=== PATIENT | male | born 2000 | race Caucasian/White ===

== ENCOUNTER 2023-11-25 12:18 | Outpatient (AMB) | payer OTHER, SELFPAY ==
--- NOTE | 2023-11-25 12:26 | A.OFFVIS_ITS ---
Vital Signs 11/25/23 12:33 Height 5 ft 11 in Weight 200 lb BMI 27.9 BP 112/62 Blood Pressure Location Lt brachial Position Sitting Pulse 61 Intake Visit Reasons: Irritable bowel syndrome Intake Note: Patient new consult for IBS. Patient cc: diarrhea and abdominal pain and crams. Manager Gift Required: No Accompanied by: Mother Allergies No Known Drug Allergies Allergy (Unknown, Verified 11/25/23 12:25) none HPI HPI Irritable bowel syndrome: Details: 23-year-old male here for initial evaluation of IBS. He is referred by [facility] Mayito Malik Obesity-BMI 31 IBS-D Attention deficit hyperactivity disorder Allergic rhinitis * SURGICAL HISTORY Ear surgery * ALLERGIES: NKDA * [facility] LABS: None our system TODAY'S VISIT Onset 7-8 years ago, but mom says at of digestive issues. 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 Has been on Tagamet at age 3. Mom does most of the talking. She thinks that his anxiety plays in to his sx. They have tried certain food eliminations w/o improvement. He was put on bentyl at age 16-18 but only using prn. They do not feel that it helped much. However, it will end the flairs sooner. He will have a feeling of bloating with lower abd pain. He will try to move his bowels to see if this helps. He has a lot of gas. It will take several hours to resolve. At times he will have explosive diarrhea, but he is not sure they are connected - he fells this may be lactose intolerance. No N/V except rarely. He has not had any success with gas x etc. The sx are worse with carbonated beverages. He does not have a consistent Bm in terms of timing. The stool is normal and formed mostly more than once a day. The bad attacks occur about 3 times a week. No real testing to date. There is a remote Celiac FHX and his mother had autoimmune arthritis he had a grandmother had similar sx but she was a self diagnoser and did nto have medical help. He will sometimes have blood in the stool he says I know I have hemorrhoids. He has a rash on his upper arms. It appears follicular at red but no exudate and it is not itchy or painful. He is on bentyl 20mg, I suggest he start taking 20mg qhs every night. I will be getting basic labs, US strong FHX of GB disease. RoV 4-6 weeks. PFSH Surgical History (Updated 11/25/23 @ 12:38 by Josy Oseguera) Hx of external ear surgery Family History (Updated 11/25/23 @ 12:43 by Josy Oseguera) Paternal Grandfather Heart disease Paternal Grandmother IBS (irritable bowel syndrome) Constipation Mother Rheumatoid arthritis Father Heart disease Social History (Updated 11/25/23 @ 12:35 by Josy Oseguera) Household Members: Family Alcohol intake: never Patient Tobacco Use Status: Never used Tobacco Review of Systems Const Denies fatigue, Denies fever(s), Denies night sweats, Denies poor appetite and Denies weight loss ENT Reports Normal hearing present, Denies dysphagia, Denies odynophagia, Denies throat swelling and Denies tongue swelling Card Reports no additional complaints Resp Reports no additional complaints GI Details: Reports abdominal pain, Denies melena, Reports bloating, Denies hematochezia, Denies constipation, Denies GI cramping, Denies dysphagia, Denies excessive flatus, Denies early satiety, Denies heartburn, Denies diarrhea, Reports loose stools, Denies nausea, Denies odynophagia, Denies vomiting and Denies hematemesis Skin/Breast Denies pruritus, Denies lesions, Denies rash and Denies jaundice Neuro Reports Normal hearing present and Denies Abnormal speech present Psych Reports anxiety Endo Denies fatigue Aller/Immun Denies throat swelling and Denies tongue swelling Physical Exam Vital Signs: Last Vital Signs Pulse 61 11/25/23 12:33 BP 112/62 11/25/23 12:33 BMI result Body Mass Index 27.9 Const General: cooperative, no acute distress, well developed and well groomed Nutritional Appearance: average body habitus and well nourished Orientation/consciousness: oriented to person, oriented to place and oriented to time Limitations: No language barrier HEENT Head: Yes normocephalic and Yes atraumatic Eyes General: appearance normal, both eyes and all related structures Pupils: Equal, round and reactive pupils present Neck Neck: Yes normal visual inspection and Yes no lymphadenopathy Thyroid: Thyroid normal Resp Effort & Inspection: normal respiratory effort and able to speak in complete sentences Auscultation: clear to auscultation bilaterally Cardio Rate: regular rate Rhythm: regular rhythm Heart sounds: Normal, physiologic split S2 sound present Peripheral pulses: radial pulses present and posterior tibial pulses present GI Inspection: No distended, No Abdominal panniculus present, Yes obesity and Yes striae Palpation (GI): Soft to palpation, nontender, no guarding, not rigid and No hepatosplenomegaly present Percussion: Yes normal to percussion Auscultation: normal bowel sounds Rectal Exam - Male: Yes deferred Skin General skin exam: no rashes or lesions noted, turgor normal, skin not dry, no jaundice, No spider nevi and no striae Rashes: no rashes Nails: normal Neuro General: oriented to person, oriented to place and oriented to time Cranial nerves: Yes Equal, round and reactive pupils present and Yes Normal hearing present Speech: No Abnormal speech present Extrem General: Yes normal to inspection, No clubbing, No cyanosis and No edema Psych Appearance: grossly normal and well kempt Mental Status: mental status grossly normal Speech and movement: Normal speech and movement present Affect: normal affect Attitude: cooperative Thought process: Normal thought process present and not confabulating Thought content: Normal thought content present Insight: Limited insight present (Psych) Judgement: Limited judgement present (Psych) Assessment & Plan Assessment & Plan (1) Abdominal pain: Code(s): R10.9 - Unspecified abdominal pain Category: Medical (2) Family history of gallbladder disease: Code(s): Z83.79 - Family history of other diseases of the digestive system Category: Medical (3) Diarrhea: Code(s): R19.7 - Diarrhea, unspecified Category: Medical (4) Abdominal bloating: Code(s): R14.0 - Abdominal distension (gaseous) Category: Medical (5) Irritable bowel syndrome with diarrhea: Code(s): K58.0 - Irritable bowel syndrome with diarrhea Category: Medical Plan Onset 7-8 years ago, but mom says at of digestive issues. 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 Has been on Tagamet at age 3. Mom does most of the talking. She thinks that his anxiety plays in to his sx. They have tried certain food eliminations w/o improvement. He was put on bentyl at age 16-18 but only using prn. They do not feel that it helped much. However, it will end the flairs sooner. He will have a feeling of bloating with lower abd pain. He will try to move his bowels to see if this helps. He has a lot of gas. It will take several hours to resolve. At times he will have explosive diarrhea, but he is not sure they are connected - he fells this may be lactose intolerance. No N/V except rarely. He has not had any success with gas x etc. The sx are worse with carbonated beverages. He does not have a consistent Bm in terms of timing. The stool is normal and formed mostly more than once a day. The bad attacks occur about 3 times a week. No real testing to date. There is a remote Celiac FHX and his mother had autoimmune arthritis he had a grandmother had similar sx but she was a self diagnoser and did nto have medical help. He will sometimes have blood in the stool he says I know I have hemorrhoids. He has a rash on his upper arms. It appears follicular at red but no exudate and it is not itchy or painful. He is on bentyl 20mg, I suggest he start taking 20mg qhs every night. I will be getting basic labs, US strong FHX of GB disease. RoV 4-6 weeks. Orders: Orders Complete Blood Count Auto Diff Today R10.9 - Unspecified abdominal pain, R14.0 - Abdominal distension (gaseous), R19.7 - Diarrhea, unspecified, Z83.79 - Family history of other diseases of the digestive system Transglutaminase IgA Today R10.9 - Unspecified abdominal pain, R14.0 - Abdominal distension (gaseous), R19.7 - Diarrhea, unspecified, Z83.79 - Family history of other diseases of the digestive system Transglutaminase Ab IgG Today R10.9 - Unspecified abdominal pain, R14.0 - Abdominal distension (gaseous), R19.7 - Diarrhea, unspecified, Z83.79 - Family history of other diseases of the digestive system Rast Allergen Today R10.9 - Unspecified abdominal pain, R14.0 - Abdominal distension (gaseous), R19.7 - Diarrhea, unspecified, Z83.79 - Family history of other diseases of the digestive system Comprehensive Met. Panel Today R10.9 - Unspecified abdominal pain, R14.0 - Abdominal distension (gaseous), R19.7 - Diarrhea, unspecified, Z83.79 - Family history of other diseases of the digestive system C Reactive Protein Today R10.9 - Unspecified abdominal pain, R14.0 - Abdominal distension (gaseous), R19.7 - Diarrhea, unspecified, Z83.79 - Family history of other diseases of the digestive system Gliadin Ab Panel Today R10.9 - Unspecified abdominal pain, R14.0 - Abdominal distension (gaseous), R19.7 - Diarrhea, unspecified, Z83.79 - Family history of other diseases of the digestive system Pancreatic Elastase-1 Today R10.9 - Unspecified abdominal pain, R14.0 - Abdominal distension (gaseous), R19.7 - Diarrhea, unspecified, Z83.79 - Family history of other diseases of the digestive system Calprotectin, Fecal Today R10.9 - Unspecified abdominal pain, R14.0 - Abdominal distension (gaseous), R19.7 - Diarrhea, unspecified, Z83.79 - Family history of other diseases of the digestive system US abdomen complete Today R10.9 - Unspecified abdominal pain, R14.0 - Abdominal distension (gaseous), R19.7 - Diarrhea, unspecified, Z83.79 - Family history of other diseases of the digestive system Medications: New dicyclomine 20 mg PO QID 120 tabs 2RF 30 days K58.0 - Irritable bowel syndrome with diarrhea Coding Level of Care Code New Pt Level 3 (22855) Diagnoses Abdominal pain R10.9 Family history of gallbladder disease Z83.79 Diarrhea R19.7 Abdominal bloating R14.0 Irritable bowel syndrome with diarrhea K58.0
[2023-11-25 12:33] VITALS: BP 112/62; PULSE 61; BMI 27.9
== END 2023-11-25 13:19 | disposition home or self-care (01) ==
PROVIDERS: PCP Pediatrics Adolescent Medicine; Visit Provider Nurse Practitioner
DX: R10.9 Unspecified abdominal pain (principal); Z83.79 Family history of other diseases of the digestive system; R19.7 Diarrhea, unspecified; R14.0 Abdominal distension (gaseous); K58.0 Irritable bowel syndrome with diarrhea
CPT/HCPCS: 99203

== ENCOUNTER 2023-11-25 12:18 | Outpatient (REF) | payer OTHER, SELFPAY ==
[2023-11-25 13:59] LABS: MANUAL DIFF FLAG NO
[2023-11-25 14:58] LABS: Basophils Absolute Auto 0.1 X10*3/uL (0.0-0.2); Basophils Percent Auto 0.9 % (0-2); Eosinophils Absolute Auto 0.2 X10*3/uL (0.0-0.4); Eosinophils Percent Auto 2.7 % (0-4); Hematocrit 46.4 % (42.0-52.0); Hemoglobin 15.8 g/dl (14.0-18.0); Imm Gran Abs Auto 0.01 X10*3/uL (0.00-0.03); Imm Gran Pct Auto 0.2 % (0.0-0.4); Lymphocytes Absolute Auto 1.9 X10*3/uL (1.2-4.9); Lymphocytes Percent Auto 34.5 % (20-40); Mean Corpuscular HGB Conc 34.1 g/dl (31.0-36.0); Mean Corpuscular Volume 85.1 fL (80.0-98.0); Mean Platelet Volume 10.5 fL (9.4-12.4); Monocytes Absolute Auto 0.5 X10*3/uL (0.1-1.2); Monocytes Percent Auto 8.9 % (2-11); Neutrophils Percent Auto 52.8 % (45-73); Platelet Count 287 X10*3/uL (160-400); Red Blood Count 5.45 X10*6/uL (4.60-5.80); Red Cell Distribution Width 11.8 % (11.0-16.0); White Blood Count 5.6 X10*3/uL (4.8-10.8)
[2023-11-25 15:33] LABS: Alanine Aminotransferase 34 U/L (0-40); Alkaline Phosphatase 69 U/L (39-117); Anion Gap 10 (12-20); Aspartate Amino Transferase 22 U/L (5-37); Bilirubin Total 0.9 mg/dL (0.0-1.0); Blood Urea Nitrogen 15 mg/dL (9-16); Calcium 10.3 mg/dL (8.4-10.2); Carbon Dioxide 31 mmol/L (22-29); Chloride 102 mmol/L (96-108); Estimated Glomerular Filt Rate > 60; Glucose Random 83 mg/dL (60-115); Sodium 139 mmol/L (135-145); Total Protein 8.3 g/dL (6.5-8.0)
[2023-11-29 22:09] LABS: Gliadin Deamidated IgA Ab <1.0 U/mL; Gliadin Deamidated IgG Ab <1.0 U/mL
[2023-11-30 20:24] LABS: Transglutaminase Ab IgG <1.0 U/mL; Transglutaminase IgA <1.0 U/mL
[2023-12-01 20:43] LABS: Calprotectin, Fecal 106 mcg/g
[2023-12-14 23:19] LABS: Pancreatic Elastase-1 >500 mcg/g
== END 2023-11-25 12:19 | disposition home or self-care (01) ==
LOC: HO.LAB 12:18
PROVIDERS: PCP Pediatrics Adolescent Medicine; Visit Provider Nurse Practitioner
DX: R10.9 Unspecified abdominal pain (principal); R19.7 Diarrhea, unspecified; R14.0 Abdominal distension (gaseous); Z83.79 Family history of other diseases of the digestive system
CPT/HCPCS: 36415; 80053; 82656; 83993; 85025; 86003; 86140; 86258; 86364

== ENCOUNTER 2023-12-01 08:55 | Outpatient (REF) | payer OTHER, SELFPAY ==
--- NOTE | ~2023-12-01 | US_ITS ---
EXAMINATION: US ABDOMEN COMPLETE CLINICAL INFORMATION: Unspecified abdominal pain. COMPARISON: None available. TECHNIQUE: Limited visualization due to bowel gas and body habitus. Real-time imaging of the abdominal viscera. FINDINGS: PANCREAS: Limited visualization of pancreatic tail and head. Imaged portion of pancreatic body is unremarkable. ABDOMINAL AORTA: Limited visualization. INFERIOR VENA CAVA: Visualized portions are normal. LIVER: Increased hepatic parenchymal heterogeneity and echogenicity could be associated with hepatocellular disease/hepatic steatosis and substantially limits visualization. Correlation with liver function tests and clinical exam recommended to determine further management. GALLBLADDER: No gallstones. No gallbladder wall thickening. COMMON BILE DUCT: Normal in caliber measuring 0.3 cm in diameter. RIGHT KIDNEY: No hydronephrosis. No renal calculi. Limited visualization. . The kidney measures 11.4 cm in maximum dimension. LEFT KIDNEY: No hydronephrosis. No renal calculi. Limited visualization. The kidney measures 10.2 cm in maximum dimension. SPLEEN: Normal. The spleen measures 11.8 cm in maximum dimension. FREE FLUID: None. US/US abdomen complete IMPRESSION: Increased hepatic parenchymal heterogeneity and echogenicity could be associated with hepatocellular disease/hepatic steatosis and substantially limits visualization. Correlation with liver function tests and clinical exam recommended to determine further management.
== END 2023-12-01 08:56 | disposition home or self-care (01) ==
LOC: HO.HMGCX 08:55
PROVIDERS: PCP Pediatrics Adolescent Medicine; Visit Provider Nurse Practitioner
DX: R10.9 Unspecified abdominal pain (principal); R19.7 Diarrhea, unspecified; R14.0 Abdominal distension (gaseous); Z83.79 Family history of other diseases of the digestive system
CPT/HCPCS: 76700

== ENCOUNTER 2023-12-21 08:28 | Outpatient (AMB) | payer BC, SELFPAY ==
[2023-12-21 08:38] VITALS: BP 110/68; PULSE 55; BMI 28.5
--- NOTE | 2023-12-21 08:38 | MHC.OFFVIS ---
Vital Signs 12/21/23 08:38 Height 5 ft 11 in Weight 204 lb 9.423 oz BMI 28.5 BP 110/68 Blood Pressure Location Lt brachial Position Sitting Pulse 55 Intake Visit Reasons: 4 week follow up Intake Note: Edgar returns to in office follow up of labs and US of the abdomen. CC: Patient reports he is doing about the same, he continues to have diarrhea and abdominal pain. He also reports a little bit of nausea and vomiting. 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 Accompanied by: Self / Same As Patient Allergies No Known Drug Allergies Allergy (Unknown, Verified 12/21/23 08:43) none HPI HPI 4 week follow up: Details: Assessment & Plan (1) Abdominal pain: Code(s): R10.9 - Unspecified abdominal pain Category: Medical (2) Family history of gallbladder disease: Code(s): Z83.79 - Family history of other diseases of the digestive system Category: Medical (3) Diarrhea: Code(s): R19.7 - Diarrhea, unspecified Category: Medical (4) Abdominal bloating: Code(s): R14.0 - Abdominal distension (gaseous) Category: Medical (5) Irritable bowel syndrome with diarrhea: Code(s): K58.0 - Irritable bowel syndrome with diarrhea Category: Medical Plan Onset 7-8 years ago, but mom says at of digestive issues. 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 Has been on Tagamet at age 3. Mom does most of the talking. She thinks that his anxiety plays in to his sx. They have tried certain food eliminations w/o improvement. He was put on bentyl at age 16-18 but only using prn. They do not feel that it helped much. However, it will end the flairs sooner. He will have a feeling of bloating with lower abd pain. He will try to move his bowels to see if this helps. He has a lot of gas. It will take several hours to resolve. At times he will have explosive diarrhea, but he is not sure they are connected - he fells this may be lactose intolerance. No N/V except rarely. He has not had any success with gas x etc. The sx are worse with carbonated beverages. He does not have a consistent Bm in terms of timing. The stool is normal and formed mostly more than once a day. The bad attacks occur about 3 times a week. No real testing to date. There is a remote Celiac FHX and his mother had autoimmune arthritis he had a grandmother had similar sx but she was a self diagnoser and did nto have medical help. He will sometimes have blood in the stool he says I know I have hemorrhoids. He has a rash on his upper arms. It appears follicular at red but no exudate and it is not itchy or painful. He is on bentyl 20mg, I suggest he start taking 20mg qhs every night. I will be getting basic labs, US strong FHX of GB disease. RoV 4-6 weeks. Orders: Orders Complete Blood Count Auto Diff Today R10.9 - Unspecified abdominal pain, R14.0 - Abdominal distension (gaseous), R19.7 - Diarrhea, unspecified, Z83.79 - Family history of other diseases of the digestive system Transglutaminase IgA Today R10.9 - Unspecified abdominal pain, R14.0 - Abdominal distension (gaseous), R19.7 - Diarrhea, unspecified, Z83.79 - Family history of other diseases of the digestive system Transglutaminase Ab IgG Today R10.9 - Unspecified abdominal pain, R14.0 - Abdominal distension (gaseous), R19.7 - Diarrhea, unspecified, Z83.79 - Family history of other diseases of the digestive system Rast Allergen Today R10.9 - Unspecified abdominal pain, R14.0 - Abdominal distension (gaseous), R19.7 - Diarrhea, unspecified, Z83.79 - Family history of other diseases of the digestive system Comprehensive Met. Panel Today R10.9 - Unspecified abdominal pain, R14.0 - Abdominal distension (gaseous), R19.7 - Diarrhea, unspecified, Z83.79 - Family history of other diseases of the digestive system C Reactive Protein Today R10.9 - Unspecified abdominal pain, R14.0 - Abdominal distension (gaseous), R19.7 - Diarrhea, unspecified, Z83.79 - Family history of other diseases of the digestive system Gliadin Ab Panel Today R10.9 - Unspecified abdominal pain, R14.0 - Abdominal distension (gaseous), R19.7 - Diarrhea, unspecified, Z83.79 - Family history of other diseases of the digestive system Pancreatic Elastase-1 Today R10.9 - Unspecified abdominal pain, R14.0 - Abdominal distension (gaseous), R19.7 - Diarrhea, unspecified, Z83.79 - Family history of other diseases of the digestive system Calprotectin, Fecal Today R10.9 - Unspecified abdominal pain, R14.0 - Abdominal distension (gaseous), R19.7 - Diarrhea, unspecified, Z83.79 - Family history of other diseases of the digestive system US abdomen complete Today R10.9 - Unspecified abdominal pain, R14.0 - Abdominal distension (gaseous), R19.7 - Diarrhea, unspecified, Z83.79 - Family history of other diseases of the digestive system Medications: New dicyclomine 20 mg PO QID 120 tabs 2RF 30 days K58.0 - Irritable bowel syndrome with diarrhea LABS: Laboratory Tests 11/25/23 11/25/23 13:57 14:30 WBC 5.6 Hgb 15.8 Hct 46.4 Plt Count 287 Estimated GFR > 60 Total Bilirubin 0.9 AST 22 ALT 34 Alkaline Phosphatase 69 C-Reactive Protein 0.10 Stool Calprotectin 106 Stool Pancreat Elastase >500 Tiss Transglutamin IgG <1.0 Tiss Transglutamin IgA <1.0 Anti-Gliadin IgG Ab <1.0 Gliadin (Deamidat) IgA <1.0 ULTRASOUND OF THE ABDOMEN 12/13/23 FINDINGS: PANCREAS: Limited visualization of pancreatic tail and head. Imaged portion of pancreatic body is unremarkable. ABDOMINAL AORTA: Limited visualization. INFERIOR VENA CAVA: Visualized portions are normal. LIVER: Increased hepatic parenchymal heterogeneity and echogenicity could be associated with hepatocellular disease/hepatic steatosis and substantially limits visualization. Correlation with liver function tests and clinical exam recommended to determine further management. GALLBLADDER: No gallstones. No gallbladder wall thickening. COMMON BILE DUCT: Normal in caliber measuring 0.3 cm in diameter. RIGHT KIDNEY: No hydronephrosis. No renal calculi. Limited visualization. . The kidney measures 11.4 cm in maximum dimension. LEFT KIDNEY: No hydronephrosis. No renal calculi. Limited visualization. The kidney measures 10.2 cm in maximum dimension. SPLEEN: Normal. The spleen measures 11.8 cm in maximum dimension. FREE FLUID: None. US/US abdomen complete IMPRESSION: Increased hepatic parenchymal heterogeneity and echogenicity could be associated with hepatocellular disease/hepatic steatosis and substantially limits visualization. Correlation with liver function tests and clinical exam recommended to determine further management. TODAY'S VISIT He has multiple food allergies, I print his a list. This explains the elevated fecal alex. He says Oh, this is mostly my diet. He has allergies to egg whites, peanuts, wheat, walnuts, cow's milk, shrimp, scallops, sesame seeds, Haylee nuts, almond. This leads seen a wonder if the rash in his arms is not a result of his multiple food allergies. He has a mildly elevated fecal calprotectin but I think this is probably from the irritation of the allergies and not a process indicating inflammatory bowel disease. We will give him 8 week to try elimination diet. He is on bentyl which is somewhat helpful, but he notes if he forgets to take it one day he will have diarrhea the next. ROV 8 weeks. [facility] Surgical History Hx of external ear surgery Family History Paternal Grandfather Heart disease Paternal Grandmother IBS (irritable bowel syndrome) Constipation Mother Rheumatoid arthritis Father Heart disease Social History Household Members: Family Alcohol intake: never Patient Tobacco Use Status: Never used Tobacco Review of Systems Const Denies fatigue, Denies fever(s), Denies night sweats, Denies poor appetite and Denies weight loss ENT Reports Normal hearing present, Denies dental pain, Denies dysphagia, Denies hearing loss, Denies mouth pain, Denies odynophagia, Denies throat swelling, Denies tongue swelling and Reports other (Dentition adequate) Card Reports no additional complaints Resp Reports no additional complaints GI Details: Denies abdominal pain, Denies melena, Reports bloating, Denies hematochezia, Denies constipation, Denies GI cramping, Denies dysphagia, Denies excessive flatus, Denies early satiety, Denies heartburn, Reports diarrhea, Denies nausea, Denies odynophagia, Denies vomiting and Denies hematemesis Skin/Breast Denies pruritus, Denies lesions, Reports rash and Denies jaundice Neuro Reports Normal hearing present and Denies Abnormal speech present Endo Denies fatigue Aller/Immun Denies throat swelling and Denies tongue swelling Physical Exam Vital Signs: Last Vital Signs Pulse 55 12/21/23 08:38 BP 110/68 12/21/23 08:38 BMI result Body Mass Index 28.5 Const General: cooperative, no acute distress, well developed and well groomed Nutritional Appearance: average body habitus and well nourished Orientation/consciousness: oriented to person, oriented to place and oriented to time Limitations: No language barrier HEENT Head: Yes normocephalic and Yes atraumatic Eyes General: appearance normal, both eyes and all related structures Pupils: Equal, round and reactive pupils present Neck Neck: Yes normal visual inspection and Yes no lymphadenopathy Thyroid: Thyroid normal Resp Effort & Inspection: normal respiratory effort and able to speak in complete sentences Auscultation: clear to auscultation bilaterally Cardio Rate: regular rate Rhythm: regular rhythm Heart sounds: Normal, physiologic split S2 sound present Peripheral pulses: radial pulses present and posterior tibial pulses present GI Inspection: No distended and No Abdominal panniculus present Palpation (GI): Soft to palpation, nontender, no guarding, not rigid and No hepatosplenomegaly present Percussion: Yes normal to percussion Auscultation: normal bowel sounds Rectal Exam - Male: Yes deferred Skin General skin exam: no rashes or lesions noted, turgor normal, skin not dry, no jaundice, No spider nevi and no striae Rashes: rashes noted (On upper arms flat, discrete pin dot) Nails: normal Neuro General: oriented to person, oriented to place and oriented to time Cranial nerves: Yes Equal, round and reactive pupils present and Yes Normal hearing present Speech: No Abnormal speech present Extrem General: Yes normal to inspection, No clubbing, No cyanosis and No edema Psych Appearance: grossly normal and well kempt Mental Status: mental status grossly normal Speech and movement: Normal speech and movement present Affect: normal affect Attitude: cooperative Thought process: Normal thought process present and not confabulating Thought content: Normal thought content present Insight: Limited insight present (Psych) Judgement: Limited judgement present (Psych) Results Reviewed Results Reviewed: Laboratory Tests 11/25/23 11/25/23 13:57 14:30 WBC 5.6 Hgb 15.8 Hct 46.4 Plt Count 287 Estimated GFR > 60 Total Bilirubin 0.9 AST 22 ALT 34 Alkaline Phosphatase 69 C-Reactive Protein 0.10 Stool Calprotectin 106 Stool Pancreat Elastase >500 Tiss Transglutamin IgG <1.0 Tiss Transglutamin IgA <1.0 Anti-Gliadin IgG Ab <1.0 Gliadin (Deamidat) IgA <1.0 ULTRASOUND OF THE ABDOMEN 12/13/23 FINDINGS: PANCREAS: Limited visualization of pancreatic tail and head. Imaged portion of pancreatic body is unremarkable. ABDOMINAL AORTA: Limited visualization. INFERIOR VENA CAVA: Visualized portions are normal. LIVER: Increased hepatic parenchymal heterogeneity and echogenicity could be associated with hepatocellular disease/hepatic steatosis and substantially limits visualization. Correlation with liver function tests and clinical exam recommended to determine further management. GALLBLADDER: No gallstones. No gallbladder wall thickening. COMMON BILE DUCT: Normal in caliber measuring 0.3 cm in diameter. RIGHT KIDNEY: No hydronephrosis. No renal calculi. Limited visualization. . The kidney measures 11.4 cm in maximum dimension. LEFT KIDNEY: No hydronephrosis. No renal calculi. Limited visualization. The kidney measures 10.2 cm in maximum dimension. SPLEEN: Normal. The spleen measures 11.8 cm in maximum dimension. FREE FLUID: None. US/US abdomen complete IMPRESSION: Increased hepatic parenchymal heterogeneity and echogenicity could be associated with hepatocellular disease/hepatic steatosis and substantially limits visualization. Correlation with liver function tests and clinical exam recommended to determine further management Assessment & Plan Assessment & Plan (1) Multiple food allergies: Comment: egg whites, peanuts, wheat, walnuts, cow's milk, shrimp, scallops, sesame seeds, Haylee nuts, almond. Code(s): Z91.018 - Allergy to other foods Category: Medical (2) Abdominal bloating: Code(s): R14.0 - Abdominal distension (gaseous) Category: Medical (3) Irritable bowel syndrome with diarrhea: Code(s): K58.0 - Irritable bowel syndrome with diarrhea Category: Medical Plan He has multiple food allergies, I print his a list. This explains the elevated fecal alex. He says Oh, this is mostly my diet. He has allergies to egg whites, peanuts, wheat, walnuts, cow's milk, shrimp, scallops, sesame seeds, Haylee nuts, almond. This leads seen a wonder if the rash in his arms is not a result of his multiple food allergies. He has a mildly elevated fecal calprotectin but I think this is probably from the irritation of the allergies and not a process indicating inflammatory bowel disease. We will give him 8 week to try elimination diet. He is on bentyl which is somewhat helpful, but he notes if he forgets to take it one day he will have diarrhea the next. ROV 8 weeks. Coding Level of Care Code Est Pt Level 3 (53336) Diagnoses Multiple food allergies Z91.018 Abdominal bloating R14.0 Irritable bowel syndrome with diarrhea K58.0
== END 2023-12-21 09:08 | disposition home or self-care (01) ==
PROVIDERS: PCP Pediatrics Adolescent Medicine; Referring Provider Pediatrics Adolescent Medicine; Visit Provider Nurse Practitioner
DX: Z91.018 Allergy to other foods (principal); R14.0 Abdominal distension (gaseous); K58.0 Irritable bowel syndrome with diarrhea
CPT/HCPCS: 99213

== ENCOUNTER → 2023-12-21 08:28 | Outpatient (BNVA) | payer OTHER, SELFPAY | PROVIDERS: PCP Pediatrics Adolescent Medicine; Visit Provider Nurse Practitioner ==

== ENCOUNTER 2024-02-15 12:35 | Outpatient (AMB) | payer BC, SELFPAY ==
--- NOTE | 2024-02-15 12:46 | MHC.OFFVIS ---
Vital Signs 02/15/24 12:48 Height 5 ft 11 in Weight 194 lb BMI 27.1 BP 106/57 L Blood Pressure Location Lt brachial Position Sitting Pulse 68 Intake Visit Reasons: 8 week follow up Intake Note: Patient follow up for abdominal pain Patient cc: abdominal pain/bloating, between diarrhea and constipation, gassy and denies any other GI issues. 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 Code(s): Z91.018 - Allergy to other foods Category: Medical (2) Abdominal bloating: Code(s): R14.0 - Abdominal distension (gaseous) Category: Medical (3) Irritable bowel syndrome with diarrhea: Code(s): K58.0 - Irritable bowel syndrome with diarrhea Category: Medical Plan He has multiple food allergies, I print his a list. This explains the elevated fecal alex. He says Oh, this is mostly my diet. He has allergies to egg whites, peanuts, wheat, walnuts, cow's milk, shrimp, scallops, sesame seeds, Haylee nuts, almond. This leads seen a wonder if the rash in his arms is not a result of his multiple food allergies. He has a mildly elevated fecal calprotectin but I think this is probably from the irritation of the allergies and not a process indicating inflammatory bowel disease. We will give him 8 week to try elimination diet. He is on bentyl which is somewhat helpful, but he notes if he forgets to take it one day he will have diarrhea the next. ROV 8 weeks. . TODAY'S VISIT He is here today with his mother who is supportive He has successfully eliminated all the foods he is allergic to and he noticed an improvement however the symptoms have not resolved. He thinks that the bloating is improved along with the intensity and maybe the frequency of the cramping and softer stools but it still enough that it interferes with his work in his life. He tends to take the dicyclomine only on an as-needed basis and mostly during the week to try to get to work and then stops on the weekends. Nevertheless, he does not find it to be that terribly effective in keeping the symptoms at [place]. Mostly his stools are multiple times a day and soft but when he has severe cramping is when he has looser stools. With this, I think we need to progress to a different treatment than dicyclomine but I think that some of the IBS/D medications for severe cases may be too strong and cause him constipation. With this in mind I think were going to give him a trial of TCA specifically imipramine and titrate this to affect her side effect to give him better control. I explained the potential side effects and the treatment plan and he is agreeable to it Return office visit in 2 weeks to evaluate his response [facility] Medical History Family history of gallbladder disease Abdominal pain Irritable bowel syndrome with diarrhea Surgical History Hx of external ear surgery Family History Paternal Grandfather Heart disease Paternal Grandmother IBS (irritable bowel syndrome) Constipation Mother Rheumatoid arthritis Father Heart disease Social History Household Members: Family Alcohol intake: never Patient Tobacco Use Status: Never used Tobacco Review of Systems Const Denies fatigue, Denies fever(s), Denies night sweats, Denies poor appetite and Denies weight loss ENT Reports Normal hearing present, Denies dental pain, Denies dysphagia, Denies hearing loss, Denies mouth pain, Denies odynophagia, Denies throat swelling, Denies tongue swelling and Reports other (Dentition adequate) Card Reports no additional complaints Resp Reports no additional complaints GI Details: Denies abdominal pain, Denies melena, Reports bloating, Denies hematochezia, Denies constipation, Denies GI cramping, Denies dysphagia, Denies excessive flatus, Denies early satiety, Denies heartburn, Reports diarrhea, Denies nausea, Denies odynophagia, Denies vomiting and Denies hematemesis Skin/Breast Denies pruritus, Denies lesions, Denies rash and Denies jaundice Neuro Reports Normal hearing present and Denies Abnormal speech present Endo Denies fatigue Aller/Immun Denies throat swelling and Denies tongue swelling Physical Exam Vital Signs: Last Vital Signs Pulse 68 02/15/24 12:48 BP 106/57 L 02/15/24 12:48 BMI result Body Mass Index 27.1 Const General: cooperative, no acute distress, well developed and well groomed Nutritional Appearance: average body habitus and well nourished Orientation/consciousness: oriented to person, oriented to place and oriented to time Limitations: No language barrier HEENT Head: Yes normocephalic and Yes atraumatic Eyes General: appearance normal, both eyes and all related structures Pupils: Equal, round and reactive pupils present Neck Neck: Yes normal visual inspection and Yes no lymphadenopathy Thyroid: Thyroid normal Resp Effort & Inspection: normal respiratory effort and able to speak in complete sentences Auscultation: clear to auscultation bilaterally Cardio Rate: regular rate Rhythm: regular rhythm Heart sounds: Normal, physiologic split S2 sound present Peripheral pulses: radial pulses present and posterior tibial pulses present GI Inspection: No distended and No Abdominal panniculus present Palpation (GI): Soft to palpation, nontender, no guarding, not rigid and No hepatosplenomegaly present Percussion: Yes normal to percussion Auscultation: normal bowel sounds Rectal Exam - Male: Yes deferred Skin General skin exam: no rashes or lesions noted, turgor normal, skin not dry, no jaundice, No spider nevi and no striae Rashes: no rashes Nails: normal Neuro General: oriented to person, oriented to place and oriented to time Cranial nerves: Yes Equal, round and reactive pupils present and Yes Normal hearing present Speech: No Abnormal speech present Extrem General: Yes normal to inspection, No clubbing, No cyanosis and No edema Psych Appearance: grossly normal and well kempt Mental Status: mental status grossly normal Speech and movement: Normal speech and movement present Affect: normal affect Attitude: cooperative Thought process: Normal thought process present and not confabulating Thought content: Normal thought content present Insight: Limited insight present (Psych) Judgement: Limited judgement present (Psych) Assessment & Plan Assessment & Plan (1) Multiple food allergies: Comment: egg whites, peanuts, wheat, walnuts, cow's milk, shrimp, scallops, sesame seeds, Haylee nuts, almond. Code(s): Z91.018 - Allergy to other foods Category: Medical (2) Abdominal bloating: Code(s): R14.0 - Abdominal distension (gaseous) Category: Medical (3) Diarrhea: Code(s): R19.7 - Diarrhea, unspecified Category: Medical (4) Irritable bowel syndrome with diarrhea: Code(s): K58.0 - Irritable bowel syndrome with diarrhea Category: Medical Plan He is here today with his mother who is supportive He has successfully eliminated all the foods he is allergic to and he noticed an improvement however the symptoms have not resolved. He thinks that the bloating is improved along with the intensity and maybe the frequency of the cramping and softer stools but it still enough that it interferes with his work in his life. He tends to take the dicyclomine only on an as-needed basis and mostly during the week to try to get to work and then stops on the weekends. Nevertheless, he does not find it to be that terribly effective in keeping the symptoms at [place]. Mostly his stools are multiple times a day and soft but when he has severe cramping is when he has looser stools. With this, I think we need to progress to a different treatment than dicyclomine but I think that some of the IBS/D medications for severe cases may be too strong and cause him constipation. With this in mind I think were going to give him a trial of TCA specifically imipramine and titrate this to affect her side effect to give him better control. I explained the potential side effects and the treatment plan and he is agreeable to it Return office visit in 2 weeks to evaluate his response Medications: New imipramine HCl 10 mg PO BEDTIME 30 tabs 6RF 30 days K58.0 - Irritable bowel syndrome with diarrhea On Hold dicyclomine Hold Comment: Doctor's Order 20 mg PO QID 30 days 120 tabs 2RF K58.0 - Irritable bowel syndrome with diarrhea Coding Level of Care Code Est Pt Level 3 (98835) Diagnoses Multiple food allergies Z91.018 Abdominal bloating R14.0 Diarrhea R19.7 Irritable bowel syndrome with diarrhea K58.0
[2024-02-15 12:48] VITALS: BP 106/57; PULSE 68; BMI 27.1
== END 2024-02-15 13:20 | disposition home or self-care (01) ==
PROVIDERS: PCP Pediatrics Adolescent Medicine; Visit Provider Nurse Practitioner
DX: Z91.018 Allergy to other foods (principal); R14.0 Abdominal distension (gaseous); R19.7 Diarrhea, unspecified; K58.0 Irritable bowel syndrome with diarrhea
CPT/HCPCS: 99213

== ENCOUNTER → 2024-02-15 12:35 | Outpatient (BNVA) | payer OTHER, SELFPAY | PROVIDERS: PCP Pediatrics Adolescent Medicine; Visit Provider Nurse Practitioner ==

== ENCOUNTER 2024-02-29 12:39 | Outpatient (AMB) | payer BC, SELFPAY ==
--- NOTE | 2024-02-29 12:47 | A.OFFVIS_ITS ---
Vital Signs 02/29/24 12:53 Height 5 ft 11 in Weight 194 lb 14.218 oz BMI 27.2 BP 114/72 Blood Pressure Location Lt brachial Position Sitting Pulse 76 Pulse Source Pulse Oximeter Pulse Oximetry (%) 98 Oxygen Delivery Method Room Air Intake Visit Reasons: 2 week follow up Intake Note: Buck presents in office today for a scheduled 2 week FUV. CC: Pt reports that they have remained stable since their last visit, but have not seen any improvements over the course of the recent weeks. Pt denies any new concerns at this time and reports that their concerns are pertaining to their chronic sx. 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 He thinks that the bloating is improved along with the intensity and maybe the frequency of the cramping and softer stools but it still enough that it interferes with his work in his life. He tends to take the dicyclomine only on an as-needed basis and mostly during the week to try to get to work and then stops on the weekends. Nevertheless, he does not find it to be that terribly effective in keeping the symptoms at [place]. Mostly his stools are multiple times a day and soft but when he has severe cramping is when he has looser stools. With this, I think we need to progress to a different treatment been dicyclomine but I think that some of the IBS/D medications for severe cases may be too strong and cause him constipation. With this in mind I think were going to give him a trial of TCA specifically imipramine and titrate this to affect her side effect to give him better control. I explained the potential side effects and the treatment plan and he is agreeable to it Return office visit in 2 weeks to evaluate his response TODAYS VISIT Sx same with multiple soft stools and cramping, he is generally avoiding all the food is allergic to except on labor day weekend when he cheated a bit. Otherwise he has been doing well with that. He has had absolutely no side effects from the imipramine. At this point we will slowly increase the medication until we reach therapeutic affect or problems with side effects and go from there. Return office visit in 3 weeks [facility] Medical History Family history of gallbladder disease Abdominal pain Irritable bowel syndrome with diarrhea Surgical History Hx of external ear surgery Family History Paternal Grandfather Heart disease Paternal Grandmother IBS (irritable bowel syndrome) Constipation Mother Rheumatoid arthritis Father Heart disease Social History Household Members: Family Alcohol intake: never Patient Tobacco Use Status: Never used Tobacco Review of Systems Const Denies fatigue, Denies fever(s), Denies night sweats, Denies poor appetite and Denies weight loss ENT Reports Normal hearing present, Denies dental pain, Denies dysphagia, Denies hearing loss, Denies mouth pain, Denies odynophagia, Denies throat swelling, Denies tongue swelling and Reports other (Dentition adequate) Card Reports no additional complaints Resp Reports no additional complaints GI Details: Denies abdominal pain, Denies melena, Reports bloating, Denies hematochezia, Denies constipation, Reports GI cramping, Denies dysphagia, Denies excessive flatus, Denies early satiety, Denies heartburn, Reports diarrhea, Denies nausea, Denies odynophagia, Denies vomiting and Denies hematemesis Skin/Breast Denies pruritus, Denies lesions, Denies rash and Denies jaundice Neuro Reports Normal hearing present and Denies Abnormal speech present Endo Denies fatigue Aller/Immun Denies throat swelling and Denies tongue swelling Physical Exam Vital Signs: Last Vital Signs Pulse 76 02/29/24 12:53 BP 114/72 02/29/24 12:53 Pulse Ox 98 02/29/24 12:53 Oxygen Delivery Method Room Air 02/29/24 12:53 BMI result Body Mass Index 27.2 Const General: cooperative, no acute distress, well developed and well groomed Nutritional Appearance: average body habitus and well nourished Orientation/consciousness: oriented to person, oriented to place and oriented to time Limitations: No language barrier HEENT Head: Yes normocephalic and Yes atraumatic Eyes General: appearance normal, both eyes and all related structures Pupils: Equal, round and reactive pupils present Neck Neck: Yes normal visual inspection and Yes no lymphadenopathy Thyroid: Thyroid normal Resp Effort & Inspection: normal respiratory effort and able to speak in complete sentences Auscultation: clear to auscultation bilaterally Cardio Rate: regular rate Rhythm: regular rhythm Heart sounds: Normal, physiologic split S2 sound present Peripheral pulses: radial pulses present and posterior tibial pulses present GI Inspection: No distended and No Abdominal panniculus present Palpation (GI): Soft to palpation, nontender, no guarding, not rigid and No hepatosplenomegaly present Percussion: Yes normal to percussion Auscultation: normal bowel sounds Rectal Exam - Male: Yes deferred Skin General skin exam: no rashes or lesions noted, turgor normal, skin not dry, no jaundice, No spider nevi and no striae Rashes: no rashes Nails: normal Neuro General: oriented to person, oriented to place and oriented to time Cranial nerves: Yes Equal, round and reactive pupils present and Yes Normal hearing present Speech: No Abnormal speech present Extrem General: Yes normal to inspection, No clubbing, No cyanosis and No edema Psych Appearance: grossly normal and well kempt Mental Status: mental status grossly normal Speech and movement: Normal speech and movement present Affect: normal affect Attitude: cooperative Thought process: Normal thought process present and not confabulating Thought content: Normal thought content present Insight: Fair insight present (Psych) and Limited insight present (Psych) Judgement: Fair judgement present (Psych) and Limited judgement present (Psych) Assessment & Plan Assessment & Plan (1) Multiple food allergies: Comment: egg whites, peanuts, wheat, walnuts, cow's milk, shrimp, scallops, sesame seeds, Haylee nuts, almond. Code(s): Z91.018 - Allergy to other foods Category: Medical (2) Abdominal bloating: Code(s): R14.0 - Abdominal distension (gaseous) Category: Medical (3) Diarrhea: Code(s): R19.7 - Diarrhea, unspecified Category: Medical Plan Sx same with multiple soft stools and cramping, he is generally avoiding all the food is allergic to except on day weekend when he cheated a bit. Otherwise he has been doing well with that. He has had absolutely no side effects from the imipramine. At this point we will slowly increase the medication until we reach therapeutic affect or problems with side effects and go from there. Return office visit in 3 weeks Medications: Changed From imipramine HCl 10 mg PO BEDTIME 30 days 30 tabs 6RF K58.0 - Irritable bowel syndrome with diarrhea To imipramine HCl 20 mg (2 x 10 mg) PO BEDTIME 60 tabs 6RF 30 days K58.0 - Irritable bowel syndrome with diarrhea Coding Level of Care Code Est Pt Level 3 (91664) Diagnoses Multiple food allergies Z91.018 Abdominal bloating R14.0 Diarrhea R19.7
[2024-02-29 12:53] VITALS: BP 114/72; PULSE 76; O2SAT 98; BMI 27.2
== END 2024-02-29 13:12 | disposition home or self-care (01) ==
PROVIDERS: PCP Internal Medicine; Visit Provider Nurse Practitioner
DX: Z91.018 Allergy to other foods (principal); R14.0 Abdominal distension (gaseous); R19.7 Diarrhea, unspecified
CPT/HCPCS: 99213

== ENCOUNTER → 2024-02-29 12:39 | Outpatient (BNVA) | payer BC, SELFPAY | PROVIDERS: PCP Internal Medicine; Visit Provider Nurse Practitioner ==

== ENCOUNTER 2024-03-21 12:32 | Outpatient (AMB) | payer BC, SELFPAY ==
--- NOTE | 2024-03-21 12:45 | A.OFFVIS_ITS ---
Vital Signs 03/21/24 12:48 Height 5 ft 11 in Weight 196 lb 3.382 oz BMI 27.4 BP 113/73 Blood Pressure Location Lt brachial Position Sitting Pulse 75 Intake Visit Reasons: 3 week follow up Allergies No Known Drug Allergies Allergy (Unknown, Verified 03/21/24 12:53) none HPI HPI 3 week follow up : Details: Assessment & Plan (1) Multiple food allergies: Comment: egg whites, peanuts, wheat, walnuts, cow's milk, shrimp, scallops, sesame seeds, Haylee nuts, almond. Code(s): Z91.018 - Allergy to other foods Category: Medical (2) Abdominal bloating: Code(s): R14.0 - Abdominal distension (gaseous) Category: Medical (3) Diarrhea: Code(s): R19.7 - Diarrhea, unspecified Category: Medical Plan Sx same with multiple soft stools and cramping, he is generally avoiding all the food is allergic to except on labor day weekend when he cheated a bit. Otherwise he has been doing well with that. He has had absolutely no side effects from the imipramine. At this point we will slowly increase the medication until we reach therapeutic affect or problems with side effects and go from there. Return office visit in 3 weeks Medications: Changed From imipramine HCl 10 mg PO BEDTIME 30 days 30 tabs 6RF K58.0 - Irritable bowel syndrome with diarrhea To imipramine HCl 20 mg (2 x 10 mg) PO BEDTIME 60 tabs 6RF 30 days K58.0 - Irritable bowel syndrome with diarrhea TODAY'S VISIT With the increase of his imipramine to 20 mg at night he is now symptom-free and is very happy with this regimen. He is having no side effects and no troubles with constipation. Return office visit in 6 months [facility] Medical History Family history of gallbladder disease Abdominal pain Irritable bowel syndrome with diarrhea Surgical History Hx of external ear surgery Family History Paternal Grandfather Heart disease Paternal Grandmother IBS (irritable bowel syndrome) Constipation Mother Rheumatoid arthritis Father Heart disease Social History Household Members: Family Alcohol intake: never Patient Tobacco Use Status: Never used Tobacco Review of Systems Const Denies fatigue, Denies fever(s), Denies night sweats, Denies poor appetite and Denies weight loss ENT Reports Normal hearing present, Denies dental pain, Denies dysphagia, Denies hearing loss, Denies mouth pain, Denies odynophagia, Denies throat swelling, Denies tongue swelling and Reports other (Dentition adequate) Card Reports no additional complaints Resp Reports no additional complaints GI Details: Reports abdominal pain, Denies melena, Denies bloating, Denies hematochezia, Denies constipation, Denies GI cramping, Denies dysphagia, Denies excessive flatus, Denies early satiety, Denies heartburn, Reports diarrhea, Denies nausea, Denies odynophagia, Denies vomiting and Denies hematemesis Skin/Breast Denies pruritus, Denies lesions, Denies rash and Denies jaundice Neuro Reports Normal hearing present and Denies Abnormal speech present Endo Denies fatigue Aller/Immun Denies throat swelling and Denies tongue swelling Physical Exam Vital Signs: Last Vital Signs Pulse 75 03/21/24 12:48 BP 113/73 03/21/24 12:48 BMI result Body Mass Index 27.4 Const General: cooperative, no acute distress, well developed and well groomed Nutritional Appearance: average body habitus and well nourished Orientation/consciousness: oriented to person, oriented to place and oriented to time Limitations: No language barrier HEENT Head: Yes normocephalic and Yes atraumatic Eyes General: appearance normal, both eyes and all related structures Pupils: Equal, round and reactive pupils present Neck Neck: Yes normal visual inspection and Yes no lymphadenopathy Thyroid: Thyroid normal Resp Effort & Inspection: normal respiratory effort and able to speak in complete sentences Auscultation: clear to auscultation bilaterally Cardio Rate: regular rate Rhythm: regular rhythm Heart sounds: Normal, physiologic split S2 sound present Peripheral pulses: radial pulses present and posterior tibial pulses present GI Inspection: No distended and No Abdominal panniculus present Palpation (GI): Soft to palpation, nontender, no guarding, not rigid and No hepatosplenomegaly present Percussion: Yes normal to percussion Auscultation: normal bowel sounds Rectal Exam - Male: Yes deferred Skin General skin exam: no rashes or lesions noted, turgor normal, skin not dry, no jaundice, No spider nevi and no striae Rashes: no rashes Nails: normal Neuro General: oriented to person, oriented to place and oriented to time Cranial nerves: Yes Equal, round and reactive pupils present and Yes Normal hearing present Speech: No Abnormal speech present Extrem General: Yes normal to inspection, No clubbing, No cyanosis and No edema Psych Appearance: grossly normal and well kempt Mental Status: mental status grossly normal Speech and movement: Normal speech and movement present Affect: normal affect Attitude: cooperative Thought process: Normal thought process present and not confabulating Thought content: Normal thought content present Insight: Limited insight present (Psych) Judgement: Limited judgement present (Psych) Assessment & Plan Assessment & Plan (1) Multiple food allergies: Comment: egg whites, peanuts, wheat, walnuts, cow's milk, shrimp, scallops, sesame seeds, Haylee nuts, almond. Code(s): Z91.018 - Allergy to other foods Category: Medical (2) Abdominal bloating: Code(s): R14.0 - Abdominal distension (gaseous) Category: Medical (3) Diarrhea: Code(s): R19.7 - Diarrhea, unspecified Category: Medical Plan With the increase of his imipramine to 20 mg at night he is now symptom-free and is very happy with this regimen. He is having no side effects and no troubles with constipation. Return office visit in 6 months Medications: Refilled imipramine HCl 20 mg (2 x 10 mg) PO BEDTIME 60 tabs 6RF 30 days K58.0 - Irritable bowel syndrome with diarrhea Discontinued dicyclomine Discontinued Reason: Doctor's Order 20 mg PO QID 30 days 120 tabs 2RF K58.0 - Irritable bowel syndrome with diarrhea Coding Level of Care Code Est Pt Level 3 (89373) Diagnoses Multiple food allergies Z91.018 Abdominal bloating R14.0 Diarrhea R19.7
[2024-03-21 12:48] VITALS: BP 113/73; PULSE 75; BMI 27.4
--- NOTE | 2024-03-21 12:48 | MHC.OFFVIS ---
Vital Signs 03/21/24 12:48 Height 5 ft 11 in Weight 196 lb 3.382 oz BMI 27.4 BP 113/73 Blood Pressure Location Lt brachial Position Sitting Pulse 75 Intake Visit Reasons: 3 week follow up Intake Note: Buck presents in office today for 3 weeks follow up of diarrhea. CC: Patient reports that he feels a lot better with new dose of imipramine. Denies any new GI symptoms or concerns. 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 Accompanied by: Self / Same As Patient Allergies No Known Drug Allergies Allergy (Unknown, Verified 03/21/24 12:53) none PFSH Medical History Family history of gallbladder disease Abdominal pain Irritable bowel syndrome with diarrhea Surgical History Hx of external ear surgery Family History Paternal Grandfather Heart disease Paternal Grandmother IBS (irritable bowel syndrome) Constipation Mother Rheumatoid arthritis Father Heart disease Social History Household Members: Family Alcohol intake: never Patient Tobacco Use Status: Never used Tobacco Assessment & Plan Assessment & Plan (1) Multiple food allergies: Comment: egg whites, peanuts, wheat, walnuts, cow's milk, shrimp, scallops, sesame seeds, Haylee nuts, almond. Code(s): Z91.018 - Allergy to other foods Category: Medical (2) Abdominal bloating: Code(s): R14.0 - Abdominal distension (gaseous) Category: Medical (3) Diarrhea: Code(s): R19.7 - Diarrhea, unspecified Category: Medical Coding Diagnoses Multiple food allergies Z91.018 Abdominal bloating R14.0 Diarrhea R19.7
== END 2024-03-21 13:08 | disposition home or self-care (01) ==
PROVIDERS: PCP Internal Medicine; Visit Provider Nurse Practitioner
DX: Z91.018 Allergy to other foods (principal); R14.0 Abdominal distension (gaseous); R19.7 Diarrhea, unspecified
CPT/HCPCS: 99213

== ENCOUNTER → 2024-03-21 12:32 | Outpatient (BNVA) | payer BC, SELFPAY | PROVIDERS: PCP Internal Medicine; Visit Provider Nurse Practitioner ==

== ENCOUNTER 2024-09-19 12:18 | Outpatient (AMB) | payer BC, SELFPAY ==
--- NOTE | 2024-09-19 12:21 | MHC.OFFVIS ---
Vital Signs 09/19/24 12:26 Height 5 ft 11 in Weight 198 lb BMI 27.6 BP 108/68 Blood Pressure Location Lt brachial Position Sitting Pulse 86 Intake Visit Reasons: 6 month follow up Intake Note: Patient 6 month follow up Patient cc: acid reflex with some burning sensation on and off, denies any other GI issues. 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 Code(s): Z91.018 - Allergy to other foods Category: Medical (2) Abdominal bloating: Code(s): R14.0 - Abdominal distension (gaseous) Category: Medical (3) Diarrhea: Code(s): R19.7 - Diarrhea, unspecified Category: Medical Plan With the increase of his imipramine to 20 mg at night he is now symptom-free and is very happy with this regimen. He is having no side effects and no troubles with constipation. Return office visit in 6 months Medications: Refilled imipramine HCl 20 mg (2 x 10 mg) PO BEDTIME 60 tabs 6RF 30 days K58.0 - Irritable bowel syndrome with diarrhea Discontinued dicyclomine Discontinued Reason: Doctor's Order 20 mg PO QID 30 days 120 tabs 2RF K58.0 - Irritable bowel syndrome with diarrhea TODAY'S VISIT In general he continues to do well. He has far less symptoms than he did when we started although occasionally he has bad days. He is also having reflux every couple of days. He is addressing this by taking [id number] Tums which I encouraged since it has calcium that is good for him. At this point I am uncertain why he is having the reflux I think will just watch and wait for now before we make any changes. Return office visit in 6 months or sooner if the symptoms worsen [facility] Medical History Family history of gallbladder disease Abdominal pain Irritable bowel syndrome with diarrhea Surgical History Hx of external ear surgery Family History Paternal Grandfather Heart disease Paternal Grandmother IBS (irritable bowel syndrome) Constipation Mother Rheumatoid arthritis Father Heart disease Social History Household Members: Family Alcohol intake: never Patient Tobacco Use Status: Never used Tobacco Review of Systems Const Denies fatigue, Denies fever(s), Denies night sweats, Denies poor appetite and Denies weight loss ENT Reports Normal hearing present, Denies dental pain, Denies dysphagia, Denies hearing loss, Denies mouth pain, Denies odynophagia, Denies throat swelling, Denies tongue swelling and Reports other (Dentition adequate) Card Reports no additional complaints Resp Reports no additional complaints GI Details: Denies abdominal pain, Denies melena, Reports bloating, Denies hematochezia, Denies constipation, Denies GI cramping, Denies dysphagia, Denies excessive flatus, Denies early satiety, Reports heartburn, Denies diarrhea, Denies nausea, Denies odynophagia, Denies vomiting and Denies hematemesis Skin/Breast Denies pruritus, Denies lesions, Denies rash and Denies jaundice Neuro Reports Normal hearing present and Denies Abnormal speech present Endo Denies fatigue Aller/Immun Denies throat swelling and Denies tongue swelling Physical Exam Vital Signs: Last Vital Signs Pulse 86 09/19/24 12:26 BP 108/68 09/19/24 12:26 BMI result Body Mass Index 27.6 Const General: cooperative, no acute distress, well developed and well groomed Nutritional Appearance: average body habitus and well nourished Orientation/consciousness: oriented to person, oriented to place and oriented to time Limitations: No language barrier HEENT Head: Yes normocephalic and Yes atraumatic Eyes General: appearance normal, both eyes and all related structures Pupils: Equal, round and reactive pupils present Neck Neck: Yes normal visual inspection and Yes no lymphadenopathy Thyroid: Thyroid normal Resp Effort & Inspection: normal respiratory effort and able to speak in complete sentences Auscultation: clear to auscultation bilaterally Cardio Rate: regular rate Rhythm: regular rhythm Heart sounds: Normal, physiologic split S2 sound present Peripheral pulses: radial pulses present and posterior tibial pulses present GI Inspection: No distended and No Abdominal panniculus present Palpation (GI): Soft to palpation, nontender, no guarding, not rigid and No hepatosplenomegaly present Percussion: Yes normal to percussion Auscultation: normal bowel sounds Rectal Exam - Male: Yes deferred Skin General skin exam: no rashes or lesions noted, turgor normal, skin not dry, no jaundice, No spider nevi and no striae Rashes: no rashes Nails: normal Neuro General: oriented to person, oriented to place and oriented to time Cranial nerves: Yes Equal, round and reactive pupils present and Yes Normal hearing present Speech: No Abnormal speech present Extrem General: Yes normal to inspection, No clubbing, No cyanosis and No edema Psych Appearance: grossly normal and well kempt Mental Status: mental status grossly normal Speech and movement: Normal speech and movement present Affect: normal affect Attitude: cooperative Thought process: Normal thought process present and not confabulating Thought content: Normal thought content present Insight: Fair insight present (Psych) Judgement: Fair judgement present (Psych) Assessment & Plan Assessment & Plan (1) Multiple food allergies: Comment: egg whites, peanuts, wheat, walnuts, cow's milk, shrimp, scallops, sesame seeds, Haylee nuts, almond. Code(s): Z91.018 - Allergy to other foods Category: Medical (2) Abdominal bloating: Code(s): R14.0 - Abdominal distension (gaseous) Category: Medical Plan In general he continues to do well. He has far less symptoms than he did when we started although occasionally he has bad days. He is also having reflux every couple of days. He is addressing this by taking [id number] Tums which I encouraged since it has calcium that is good for him. At this point I am uncertain why he is having the reflux I think will just watch and wait for now before we make any changes. Return office visit in 6 months or sooner if the symptoms worsen Medications: Refilled imipramine HCl 20 mg (2 x 10 mg) PO BEDTIME 60 tabs 6RF 30 days K58.0 - Irritable bowel syndrome with diarrhea Coding Level of Care Code Est Pt Level 3 (39697) Diagnoses Multiple food allergies Z91.018 Abdominal bloating R14.0
[2024-09-19 12:26] VITALS: BP 108/68; PULSE 86; BMI 27.6
--- OUTSIDE RECORDS SUMMARY | 2024-09-19 14:32 | XMS_ITS | Patient Health Record ---
Author Organization [facility] Address [address] [place] [address] Care Team Providers Care Welfare Analyst Name Role Phone Charlie Johansen MD Primary Care Provider Unavail Michelle Rascon Unavailable [phone] Allergies No Known Allergies Reason For Referral Diagnosis 1 Pain in left foot (M 79.672) Diagnosis 2 Pain in right foot ( M79.671) Referring Provider First Name Charlie Referring Provider Last Name Haily Referred Organization [facility] Referred Provider Michelle Matute Referred Address [address] [facility],[address] [place] [id number], Referred Provider Specialty Podiatry Referral Priority Routine Medications Medication SIG (Take, Route, Fr equency, Duration) Notes Start Date End Date Status Imipramine HCl 20 MG Activ e Social History Tobacco Use: Social History Observation Description Date Details (start date - stop date) Never Smoker NA - NA Tobacco Use/Smoking Question Answer Notes Are you a: nonsmoker Additional Findings: Tobacco Non-User Current no n-smoker Alcohol Screen Question Answer Notes Did you have a drink containing alcohol in the p ast year? Yes Points 0 Interpretation Negative Tobacco use other than smoking: Question Answer Notes Are you an other tobacco user? No Problems Problem Type SNOMED Code ICD Code Onset Dates Problem Status W/U Status Risk Notes Problem Plantar wart (29281792) Plantar wart (B07.0) Active confirmed Vital Signs Height 3ag20bm in 05/26/2024 Weight 185 lbs 05/26/2024 BMI 26.54 kg/m2 05/26/2024 Procedures Procedure Date Ordered Date Performed Result Body Sit e 34253-Uulc Destruction, 1-14 03/29/2024 N/A 86368-Ndxrwlfp Plate 03/29/2024 N/A 91457-Mlfn Destruction, -04/25/2024 N/A 91372-Mqac Destruction, -05/26/2024 N/A 66766-Yofilzwp Plate 05/26/2024 N/A Encounters Encounter Location Date Provider Diagnosis [facility] [address] 03/29/2024 Michelle Matute Right foot pain M79.671 ; Plantar wart B07.0 ; Left foot pain M79.672 and Ingrown nail L60.[address] [address] 04/25/2024 Michelle Matute Right foot pain M79.671 ; Plantar wart B07.0 and Left foot pain M79.[address] [address] 05/26/2024 Michelle Matute Right foot pain M79.671 ; Plantar wart B07.0 and Ingrown nail L60.0 Assessments Encounter Date Diagnosis (ICD Code) Assessment Notes Treatment Notes Treatment Clinical Notes Section Notes 04/25/2024 Right foot pain (ICD-10 - M79.671) 03/29/2024 Right foot pain (ICD-10 - M79.671) 05/26/2024 Right foot pain (ICD-10 - M79.671) 03/29/2024 Left foot pain (ICD-10 - M79.672) 04/25/2024 Plantar wart (ICD-10 - B07.0) 04/25/2024 Left foot pain (ICD-10 - M79.672) 05/26/2024 Plantar wart (ICD-10 - B07.0) 05/26/2024 Ingrown nail (ICD-10 - L60.0) 03/29/2024 Plantar wart (ICD-10 - B07.0) 03/29/2024 Ingrown nail (ICD-10 - L60.0) Plan Of Treatment Pending Test Test Name Order Date 73012-Sjqm Destruction, 1-14 12/12/2019 60738-Ymgy Destruction, 07-0401/03/2020 53634-Tepv Destruction, 07-0403/29/2024 07590-Gfet Destruction, 07-0404/25/2024 12624-Xsfr Destruction, 07-0405/26/2024 46941-Urgaykzv Plate 05/26/2024 28601-Sfxpjfsv Plate 03/29/2024 Insurance Providers Payer Name Payer Address Payer Phone Subscriber Number Group Number Insured Name Patient Relationship to Insured Coverage Start Date Coverage End Date [facility] [address] [place] [address] [phone] [id number] Edgar Salazar Self - patient is the insured Medical (General) History Medical History History ICD Code Chicken pox covid-19 Irritable bowel syndrome Surgical History Surgery Date(Month/Year) adnoid tubes 2003
--- OUTSIDE RECORDS SUMMARY | 2024-09-19 14:33 | XMS_ITS ---
Author Organization [facility] [place] Address [address] [place] [address] Care Team Providers Care Cottage Parent Name Role Phone Charlie Johansen MD Primary Care Provider UnavailMichelle Dietrich Unavailable [phone] Allergies No Known Allergies Medications Medication SIG (Take, Route, Fr equency, [...] Are you an other tobacco user? No Vital Signs Height 5ft 10in in 04/25/2024 Weight 185 lbs 04/25/2024 BMI 26.54 kg/m2 04/25/2024 Procedures Procedure Date Ordered Date Performed Result Body Sit e 92004-Jxka Destruction, 1-14 04/25/2024 N/A Encounters Encounter Location Date Provider Diagnosis [facility] [place] [address] [place] [address] 04/25/2024 Michelle Matute Right foot pain M79.671 ; Plantar wart B07.0 and Left foot pain M79.672 Assessments Encounter Date Diagnosis (ICD Code) Assessment Notes Treatment Notes Treatment Clinical Notes Section Notes 04/25/2024 Right foot pain (ICD-10 - M79.671) 04/25/2024 Plantar wart (ICD-10 - B07.0) 04/25/2024 Left foot pain (ICD-10 - M79.672) Plan Of Treatment Pending Test Test Name Order Date 29333-Jguf Destruction, 07-0404/25/2024 Next Appt Details Follow Up: 4 Weeks, Reason: Procedure Notes * Category Sub-Category Detail Notes Wart Treatment Procedure Verruca were marco rided to pin-point bleeding margins with sterile 15 surgical blade, silver nitrate chemocautery applied, recomm. immune-boosting meds such as zinc, recomm. follow up with topical chemosurgical agents, Pt defers [place] other forms of tx - [address]0549 , recomm. continued use of Wartstick 40 percent Salicylic acid application under occlusion as directed Progress Notes * Edgar SALAZAR MDOB:[birth year] (23 yo M)Acc No.[id number]:04/25/2024 Progress Notes Patient:?Edgar Salazar Provider:?Michelle Matute DPM :2000???Age:23 Y???Sex:Male Shan e:04/25/2024 Address:[address] [place] [address] Pcp:Charlie Johansen MD Subjective: * Chief Complaints: * ??? * HPI: ???Skin problems:?Pt States PCP Visit: ?DATE?03/28/2024 ?Misc:?States he has been compliant with wartstick and occlusion, feels warts are approximately 60% better.? * ROS:?General/Constitutional:?Nausea?denies.?Vomiting?denies.?Hunger Thirst?denies.?Loss appetite?denies.?Chills?denies.?Fatigue?denies.?Fever?denies.?Night Sweats?denies.?Unexplained weight loss?denies.?Unexplained weight gain?denies.?HEENTM:?Dentures?denies.?Dizziness?denies.?Glasses/contacts?denies.?Retinopathy?de nies.?Blurred/double vision?denies.?TMJ?denies.?Discharge/drainage?denies.?Implants?denies.?Sore throat?denies.?Dental implants?denies.?Hard of hearing ?denies.?Difficulty chewing/swallowing/speaking?denies.?Nose bleeds?denies.?Sore mouth?denies.?Respiratory:?On Oxygen?denies.?Pneumonia/pleurisy?denies.?Bronchitis?denies.?Emphysema?denies.?C oughing?denies.?Cough blood?denies.?Shortness of breath?denies.?Wheezing?denies.?Cardiovascular:?Pacemaker?denies.?MVP?denies.?WPW?denies.?CHF?denies.?Heart attack?denies.?Septal defect?denies.?Rapid beat?denies.?Chest pain ?denies.?Atrial Fib.?denies.?Murmur/Palpitations?denies.?Gastrointestinal:?Hemorrhoids?admits.?Stomach/Abdominal pain?admits.?Dark blood stool?denies.?Irritable bowel ?admits.?Constipation?admits.?Diarrhea?admits.?Hematology:?Swelling?denies.?Clots?denies.?Varicose Veins?denies.?Bruising?denies.?Bleeding problem?denies.?Genitourinary:?Blood urine?denies.?Frequent/Painfu/urination/bladder control?denies.?Kidney stones?denies.?Infection (UTI)?denies.?Nephropathy?denies.?sex trans dis (STD)?denies.?Prostate?denies.?Musculoskeletal:?Hammertoes?denies.?Bunions?denies.?Back Pain?denies.?Muscle Cramps/ Resting?denies.?Muscle cramps / walking?denies.?Generalized aches and pains?denies.?Weakness?denies.?Integ.:?Temple?denies.?Scars?denies.?Corns/calluses?denies.?Ingrown nails?admits.?Painful nails?denies.?Open Sores?denies.?Rashes?denies.?Neurologic:?Difficulty sleeping?denies.?Brain disorder?denies.?Numbness?denies.?Balance trouble?denies.?Confusion?denies.?Fainting/blackouts?denies.?Tingling?denies.?Tr emors?denies.? * Medical History:? * Surgical History:?adnoid tub es 2003 * Hospitalization/Major Diagno stic Procedure:?No Hospitalization History. * Family History:?Mother: beverley swain, diagnosed with Family history of arthritis.?Father: , poor circulation, defect - congenital heart defect, diagnosed with Diabetic - NIDDM, Unspecified essential hypertension, Unspecified heart disease.? * Social History:?Tobacco Use:?Tobacco Use/Smoking?Are you a:?nonsmoker ?Additional Findings: Tobacco Non-User?Current non-smoker ?Tobacco use other than smoking?Are you an other tobacco user??No ???Drugs/Alcohol:?Drugs?Have you used drugs other than those for medical reasons in the past 12 months??No ?Alcohol Screen?Did you have a drink containing alcohol in the past year??Yes ?Points?0 ?Interpretation?Negative ???Miscellaneous:?Caffeine: yes, frequency: 1/2-1 cup per day. ?no Children. ?Exercise: reading, video games. ?Marital status: single. 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 * Medications:?TakingImipramin e HCl , Notes: 20 MGMedication List reviewed and reconciled with the patientTaking Imipramine HCl , Notes: 20 MGMedication List reviewed and reconciled with the patient * Allergies:?N.K.D.A.yes[Shikha bernard Verified] Objective: * Vitals:?Ht: 5ft 10in, Wt:185 , BMI:26.54, Shoe size: 12.5, Ht-cm: 177.8 cm, Wt- k.91 kg. * Examination: ???Dermatologic: ?VERRUCA:?Reveals Multiple ( 3), multi-loculated , mosaic-patterned, round, raised, flat-topped, petechial bleeding papule(s), with cauliflower appearance and interruption of skin lines, with pain to lateral compression, and size estimated at 2-3 mm diameter to plantar left foot and 1?multi-loculated , mosaic-patterned, round, raised, flat-topped, petechial bleeding papule(s), with cauliflower appearance and interruption of skin lines, with pain to lateral compression, and size estimated at 2-3 mm diameter to lateral right heel.? Assessment: * Assessment: 1.?Right foot pain - M79.671 ?2.?Left foot pain - M79.672?3.?Plantar wart - B07.0 (Primary)? Plan: * Treatment: * Procedures:?Wart Treatment:?Procedure?Verruca were debrided to pin-point bleeding margins with sterile 15 surgical blade, silver nitrate chemocautery applied, recomm. immune-boosting meds such as zinc, recomm. follow up with topical chemosurgical agents, Pt defers any other forms of tx - 11095 , recomm. continued use of Wartstick 40 percent Salicylic acid application under occlusion as directed.? * Procedure Codes:?72486 Wart Destruction, 1-14 * Follow Up:?4 Weeks * Images: * Sign off status: Completed true * Provider:?Michelle Matute DPM Date:?1 06/25/2023 Generated for Ras kyle/Roderick/eTransmitting on:?09/19/2024 02:32 PM EDT History and Physical Notes * HPI (History of Present Illness) Category Sub-Category Detail Notes Category Not es Skin problems Misc: States he has be en compliant with wartstick and occlusion, feels warts are approximately 60% better Pt States PCP Visit: DATE: 03/28/2024 Examination Category Sub-Category Detail Notes Category Not es Dermatologic VERRUCA: Reveals Multiple ( 3), multi-loculated , mosaic-patterned, round, raised, flat-topped, petechial bleeding papule(s), with cauliflower appearance and interruption of skin lines, with pain to lateral compression, and size estimated at 2-3 mm diameter to plantar left foot and 1 multi-loculated , mosaic-patterned, round, raised, flat-topped, petechial bleeding papule(s), with cauliflower appearance and interruption of skin lines, with pain to lateral compression, and size estimated at 2-3 mm diameter to lateral right heel
--- OUTSIDE RECORDS SUMMARY | 2024-09-19 14:33 | XMS_ITS ---
Author Organization [facility] [place] Address [address] [place] [address] Care Team Providers Care Assurance Associate Name Role Phone Charlie Johansen MD Primary Care Provider UnavailMichelle Dietrich Unavailable [phone] Allergies No Known Allergies REASON FOR VISIT Wart(s), Ingrown Nail Medications Medication SIG (Take, Route, Fr equency, Duration) Notes Start Date End Date Status Imipramine HCl 20 MG Activ e Social History Tobacco Use: Social History Observation Description Date Details (start date - stop date) Never Smoker NA - NA Tobacco Use/Smoking Question Answer Notes Are you a: nonsmoker Additional Findings: Tobacco Non-User Current no n-smoker Tobacco use other than smoking: Question Answer Notes Are you an other tobacco user? No Vital Signs Height 3mp06hy in 05/26/2024 Weight 185 lbs 05/26/2024 BMI 26.54 kg/m2 05/26/2024 Procedures Procedure Date Ordered Date Performed Result Body Sit e 35450-Hzop Destruction, 1-14 05/26/2024 N/A 56012-Steksslr Plate 05/26/2024 N/A Encounters Encounter Location Date [facility] [address] [address] 05/26/2024 Michelle Matute Right foot pain M79.671 ; Plantar wart B07.0 and Ingrown nail L60.0 Assessments Encounter Date Diagnosis (ICD Code) Assessment Notes Treatment Notes Treatment Clinical Notes Section Notes 05/26/2024 Right foot pain (ICD-10 - M79.671) 05/26/2024 Plantar wart (ICD-10 - B07.0) 05/26/2024 Ingrown nail (ICD-10 - L60.0) Plan Of Treatment Pending Test Test Name Order Date 22827-Kbww Destruction, 1-14 05/26/2024 56661-Gmzssmjz Plate 05/26/2024 Next Appt Details Follow Up: 3 Weeks, Reason: Procedure Notes * Category Sub-Category Detail Notes Wart Treatment Procedure Verruca, as desc ribed in exam, were debrided to pin- point bleeding margins with sterile 15 surgical blade, silver nitrate chemocautery applied, recomm. immune-boosting meds such as zinc, recomm. follow up with topical chemosurgical agents, Pt defers any other forms of tx - 33987 Nail Avulsion Procedure A fine sterile e levator was placed between the eponychium, nail fold, and nail plate to separate the structures. A sterile nail splitter, and/or sterile 316 blade, was then used to longitudinally section the nail along its entire length through the eponychium to the area under the nail fold. The offending portion of nail was from the nail bed with a rolling action and then removed with a hemostat. No underlying bone was identified. There was minimal bleeding as hemostasis was achieved through the temporary use of either a digital tourniquet or the aforementioned local with epinephrine. A bacitracin sterile dressing was applied. Local wound aftercare instructions were discussed and dispensed. The patient was informed of both conservative and future surgical procedures to prevent recurrence. Tylenol or Motrin was recommended for pain or discomfort (28750) Anesthesia 3cc of 1 percent Lid ocaine Plain local anesthesic utilizing aseptic technique Location Medial nail border, TA, As per exam Progress Notes * Edgar SALAZAR MDOB:[birth year] (23 yo M)Acc No.[id number]:05/26/2024 Progress Notes Patient:?Edgar SALAZAR Provider:?Michelle Matute DPM :2000???Age:23 Y???Sex:Male Shan e:05/26/2024 Address:[address] [place] [address] Pcp:Charlie Johansen MD Subjective: * Chief Complaints: * ???Wart(s)Ingrown Nail * HPI: ???Skin problems:?Pt States PCP Visit: ?DATE?03/28/2024 ?Misc:?States he has been compliant with wartstick and occlusion, feels warts to left foot have completely resolved, right heel has significantly improved.? * ROS:?General/Constitutional:?Nausea?denies.?Vomiting?denies.?Hunger Thirst?denies.?Loss appetite?denies.?Chills?denies.?Fatigue?denies.?Fever?denies.?Night Sweats?denies.?Unexplained weight loss?denies.?Unexplained [...] tub es 2003 * Hospitalization/Major Diagno stic Procedure:?Denies Past Hospitalization * Family History:?Mother: beverley swain, diagnosed with Family history of arthritis.?Father: , poor circulation, defect - congenital heart defect, diagnosed with Diabetic - NIDDM, Unspecified essential hypertension, Unspecified heart disease.? * Social History:?Tobacco Use:?Tobacco Use/Smoking?Are you a:?nonsmoker ?Additional Findings: Tobacco Non-User?Current non-smoker ?Tobacco use other than smoking?Are you an other tobacco user??No * Medications:?TakingImipramin e HCl , Notes to Pharmacist: 20 MGMedication List reviewed and reconciled with the patientTaking Imipramine HCl , Notes to Pharmacist: 20 MGMedication List reviewed and reconciled with the patient * Allergies:?N.K.D.A.yes[Aller gies Verified] Objective: * Vitals:?Ht: 8ry23sg, Wt:185, BMI:26.54, Shoe size: 12.5, Ht-cm: 177.8 cm, Wt-k.91 kg. * Examination: ???Dermatologic: ?VERRUCA:?NO FURTHER SIGN of mosaic papule(s) with skin lines now evident and visible, LEFT foot,?1?multi-loculated , mosaic-patterned, round, raised, flat- topped, petechial bleeding papule(s), with cauliflower appearance and interruption of skin lines, with pain to lateral compression, and size estimated at 1-2 mm diameter to lateral right heel.?Ingrown Nail: ?INSPECTION:?Reveals nail incurvation, pain on palpation, groove hypertrophy, medial nail border, TA.? Assessment: * Assessment: 1.?Right foot pain - M79.671 ???2.?Plantar wart - B07.0 (Primary)???3.?Ingrown nail - L60.0??? Plan: * Treatment: 2.?Ingrown nail?Procedure: 97835-Sbrtgnlw Plate * Procedures:?Nail Avulsion:?Location?Medial nail border, TA, As per exam.?Anesthesia?3cc of 1 percent Lidocaine Plain local anesthesic utilizing aseptic technique.?Procedure?A fine sterile elevator was placed between the eponychium, nail fold, and nail plate to separate the structures. A sterile nail splitter, and/or sterile 316 blade, was then used to longitudinally section the nail along its entire length through the eponychium to the area under the nail fold. The offending portion of nail was from the nail bed with a rolling action and then removed with a hemostat. No underlying bone was identified. There was minimal bleeding as hemostasis was achieved through the temporary use of either a digital tourniquet or the aforementioned local with epinephrine. A bacitracin sterile dressing was applied. Local wound aftercare instructions were discussed and dispensed. The patient was informed of both conservative and future surgical procedures to prevent recurrence. Tylenol or Motrin was recommended for pain or discomfort (57830).?Wart Treatment:?Procedure?Verruca, as described in exam, were debrided to pin-point bleeding margins with sterile 15 surgical blade, silver nitrate chemocautery applied, recomm. immune-boosting meds such as zinc, recomm. follow up with topical chemosurgical agents, Pt defers any other forms of tx - 32665.? * Procedure Codes:?18650 Avuls ion Plate, Modifiers: XS 46499 Wart Destruction, 1- 14, Modifiers: XS * Follow Up:?3 Weeks * Images: * Sign off status: Completed true * Provider:?Michelle Matute DPM Date:?07/27/2023 Generated for Ras kyle/Roderick/Fe on:?09/19/2024 02:33 PM EDT History and Physical Notes * HPI (History of Present Illness) Category Sub-Category Detail Notes Category Not es Skin problems Misc: States he has be en compliant with wartstick and occlusion, feels warts to left foot have completely resolved, right heel has significantly improved Pt States PCP Visit: DATE: 03/28/2024 Examination Category Sub-Category Detail Notes Category Not es Ingrown Nail INSPECTION: Reveals nail inc urvation, pain on palpation, groove hypertrophy, medial nail border, TA Dermatologic VERRUCA: NO FURTHER SIGN of mosaic papule(s) with skin lines now evident and visible, LEFT foot, 1 multi-loculated , mosaic-patterned, round, raised, flat-topped, petechial bleeding papule(s), with cauliflower appearance and interruption of skin lines, with pain to lateral compression, and size estimated at 1-2 mm diameter to lateral right heel
--- OUTSIDE RECORDS SUMMARY | 2024-09-19 14:33 | XMS_ITS ---
Author Organization [facility] kira Ward Address [address] [place] [address] Care Team Providers Care Box Worker Name Role Phone Charlie Johansen MD Primary Care Provider Michelle Hernández Unavailable [phone] Allergies No Known Allergies REASON FOR VISIT Last PCP Visit: 03/28/2024, Wart(s), Ingrown Nail Medications Medication SIG (Take, [...] other tobacco user? No Vital Signs Height 5 ft 10 in in 03/29/2024 Weight 185 lbs 03/29/2024 BMI 26.54 kg/m2 03/29/2024 Procedures Procedure Date Ordered Date Performed Result Body Sit e 17745-Xwcg Destruction, 1-14 03/29/2024 N/A 04951-Icpttllg Plate 03/29/2024 N/A Encounters Encounter Location Date [facility] [address] [address] 03/29/2024 Michelle Matute Right foot pain M79.671 ; Plantar wart B07.0 ; Left foot pain M79.672 and Ingrown nail L60.0 Assessments Encounter Date Diagnosis (ICD Code) Assessment Notes Treatment Notes Treatment Clinical Notes Section Notes 03/29/2024 Right foot pain (ICD-10 - M79.671) 03/29/2024 Plantar wart (ICD-10 - B07.0) 03/29/2024 Left foot pain (ICD-10 - M79.672) 03/29/2024 Ingrown nail (ICD-10 - L60.0) Plan Of Treatment Pending Test Test Name Order Date 11796-Xatr Destruction, 1-14 03/29/2024 16469-Mmghiiuc Plate 03/29/2024 Next Appt Details Follow Up: 4 Weeks, Reason: Procedure Notes * Category Sub-Category Detail Notes Wart Treatment Procedure Verrucae were de brided to pin-point bleeding margins with sterile 15 surgical blade, silver nitrate chemocautery applied, recomm. immune-boosting meds such as zinc, recomm. follow up with topical chemosurgical agents, Pt defers any other forms of tx - 26382 Nail Avulsion Procedure Patient defers n ail avulsion today, will consider if ingrown recurs. A slantback nail procedure was performed without incident. Progress Notes * Edgar SALAZAR MDOB:[birth year] (23 yo M)Acc No.[id number]:03/29/2024 Progress Notes Patient:?Edgar Salazar Provider:?Michelle Matute DPM :2000???Age:23 Y???Sex:Male Shan e:03/29/2024 Address:[address] [place] [address] Pcp:Charlie Johansen MD Subjective: * Chief Complaints: * ??? Last PCP Visit: 4Wart(s)Ingrown Nail * HPI: ???Skin problems:?Pt States PCP Visit: ?DATE?03/28/2024 ?Misc:?Patient has a long history of warts to his bilateral feet. He states they went away for a while however returned a few months ago which he attributes to his last dorm room at [facility]. He states they are painful and limit his shoe gear choices. Patient also complains of an ingrown toenail to his left hallux which he says is sore to the touch. He denies any increase in redness or swelling to the area. He denies any drainage. He feels well overall, denies recent illness.?.? * ROS:?General/Constitutional:?Nausea?denies.?Vomiting?denies.?Hunger Thirst?denies.?Loss appetite?denies.?Chills?denies.?Fatigue?denies.?Fever?denies.?Night Sweats?denies.?Unexplained weight loss?denies.?Unexplained [...] defect - congenital heart defect, diagnosed with Unspecified heart disease, Diabetic - NIDDM, Unspecified essential hypertension.? * Social History:?Tobacco Use:?Tobacco Use/Smoking?Are you a:?nonsmoker [...] reading, video games. ?Marital status: single. 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 * Medications:?TakingImipramin e HCl , Notes: 20 MGMedication List reviewed and reconciled with the patientTaking Imipramine HCl , Notes: 20 MGMedication List reviewed and reconciled with the patient * Allergies:?N.K.D.A.yes[Aller gies Verified] Objective: * Vitals:?Ht:5 ft 10 in, Wt:18 5, BMI:26.54, Shoe size:12.5, Ht-cm: 177.8 cm, Wt- k.91 kg. * Examination: ???General Examination: ?GENERAL APPEARANCE:?Reveals a pleasant, alert, well-nourished, well- developed, well hydrated individual, who demonstrates proper attention to hygiene/body habitus, and is in no acute distress, Pt serves as own?historian for office visit today.?ORIENTED:?person, place, and time.?Dermatologic: ?SKIN FINDINGS:?Skin exam reveals normal texture, elasticity, and turgor. There are no masses. The interspaces are clear.?VERRUCA:?Reveals Multiple ( 3), multi-loculated , mosaic-patterned, round, [...] at 2-3 mm diameter to lateral right heel.?Neurological: ?SENSORY:?Neurological exam reveals intact sensorium, pain sensation normal, vibration sensation intact, pinprick sensation is normal in the lower extremities, Pt denies, anesthesia, burning, paresthesia, tingling, B/L.?DEEP TENDON REFLEXES:?Achilles, 2, B/L.?Vascular: ?DP PULSES(B):?07/25, B/L.?PT PULSES(B):?07/25, B/L.?CAPILLARY FILL TIME:?immediate, all digits, B/L.?TROPHIC CONDITION-TEXTURE/ELASTICITY/TURGOR/HAIR GROWTH(B):?normal, B/L.?TEMPERTURE GRADIENT(C):?warm to cool, proximal to distal, B/L.?PIGMENTATION:?normal, B/L.?EDEMA(C):?absent, B/L.?Orthopedic: ?MUSCLE STRENGTH:?5/5 all groups in a symmetrical fashion , B/L.?Ingrown Nail: ?INSPECTION:?Reveals nail incurvation, pain on palpation, groove hypertrophy, medial border, TA. No surrounding erythem or edema, no drainage with compression..? Assessment: * Assessment: 1.?Right foot pain - M79.671 ?2.?Left foot pain - M79.672?3.?Plantar wart - B07.0 (Primary)?4.?Ingrown nail - L60.0, Acute problem, Uncomplicated (3),Medial nail border, TA? Plan: * Treatment: 2.?Ingrown nail?Procedure: 85946-Vuhkjiqq Plate * Procedures:?Nail Avulsion:?Procedure?Patient defers nail avulsion today, will consider if ingrown recurs. A slantback nail procedure was performed without incident..?Wart Treatment:?Procedure?Verrucae were debrided to pin-point bleeding margins with sterile 15 surgical blade, silver nitrate chemocautery applied, recomm. immune-boosting meds such as zinc, recomm. follow up with topical chemosurgical agents, Pt defers any other forms of tx - 96598.? * Procedure Codes:?31818 Wart Destruction, 1-14, Modifiers: XS * Preventive Medicine:? ??Counseling:?Discussion:?-02: Office or other outpatient visit for the evaluation and management of a new patient, which required a medically appropriate history and/or examination and STRAIGHTFORWARD level of MEDICAL DECISION MAKING, 1 SELF-LIMITED OR MINOR PROBLEM, MINIMAL- NO AMOUNT/COMPLEXITY OF DATA TO BE REVIEWED/ANALYZED, AND MINIMAL RISK OF COMPLICATION/MORBIDITY. The visit on the day of the encounter encompassed interpreting the data and educating the patient as to the nature of their condition, treatment options available according to their individual PMH, meds, allergies, and overall health/living conditions, as well as any potential risks or complications that may occur from a failure to adhere to, and participate in, the recommended course of therapy. The discussion included a complete verbal, and/or written explanation of the examination results, any x-rays taken, the proposed diagnosis, and outline of the treatment plan. A schedule for future care needs was also explained. The patient verbalized an understanding of the instructions at this time and agreed to be an active participant in their treatment. If the patient should think of any questions or concerns after the visit, I have encouraged the patient to call the office.?Abscess/Paraonychia/Ingrown Nails:?We discussed the possible etiologies (genetic, improper nail care, shoe gear, nail trauma) which may lead to ingrown nails and/or paronychial infections. We discussed and reviewed palliative/nonsurgical/deferring definitive treatment (vs) undergoing the treatment procedures of nail avulsion(s) or PNA, which may prevent recurrence and give more lasting results. The possible risks/complications such as worsened condition/delayed healing/nonhealing/failure/recurrence/infection, the potential benefits/advantages of decreased pain/deformity, as well as alterative treatment options including applying nail softening agents/nail groove packing were discussed. No guarantees were given regarding any outcome for any procedure. The patient was educated in the length of time for the affected nail to regrow once completely healed from a nail avulsion procedure. Once the condition has completely healed, the patient was consulted on proper nail care. Patient questions such as details of each procedure, varying time to heal, activity post procedure, and shoe gear were discussed and the answers were verbally confirmed fully understood.?Verruca:?The patient was counseled on the diagnosis, numerous treatment options re: Verruca Plantaris and the fact that the lesions are caused by a virus and the difficulty in treating and the time that may be required., Recomm. Mediplast or Wartstick 40 percent as directed under occlusion. Patient purchased Wartstick and was instructed on use. Recommend patient follow up in 4 weeks.? * Follow Up:?4 Weeks * Images: * Sign off status: Completed true * Provider:?Michelle Matute DPM Date:?1 Generated for Ras kyle/Roderick/eTransmitting on:?09/19/2024 02:32 PM EDT History and Physical Notes * HPI (History of Present Illness) Category Sub-Category Detail Notes Category Not es Skin problems Misc: Patient has a lo ng history of warts to his bilateral feet. He states they went away for a while however returned a few months ago which he attributes to his last dorm room at [facility]. He states they are painful and limit his shoe gear choices. Patient also complains of an ingrown toenail to his left hallux which he says is sore to the touch. He denies any increase in redness or swelling to the area. He denies any drainage. He feels well overall, denies recent illness. Pt States PCP Visit: DATE: 03/28/2024 Examination Category Sub-Category Detail Notes Category Not es Ingrown Nail INSPECTION: Reveals nail inc urvation, pain on palpation, groove hypertrophy, medial border, TA. No surrounding erythem or edema, no drainage with compression. Neurological SENSORY: Neurological exa m reveals intact sensorium, pain sensation normal, vibration sensation intact, pinprick sensation is normal in the lower extremities, Pt denies, anesthesia, burning, paresthesia, tingling, B/L DEEP TENDON REFLEXES: Achilles, 2/4, B/L Dermatologic SKIN FINDINGS: Skin exam reveal s normal texture, elasticity, and turgor. There are no masses. The interspaces are clear VERRUCA: Reveals Multiple ( 3 ), multi-loculated , mosaic-patterned, round, raised, flat-topped, petechial bleeding papule(s), with cauliflower appearance and interruption of skin lines, with pain to lateral compression, and size estimated at 2-3 mm diameter to plantar left foot and 1 multi-loculated , mosaic-patterned, round, raised, flat- topped, petechial bleeding papule(s), with cauliflower appearance and interruption of skin lines, with pain to lateral compression, and size estimated at 2-3 mm diameter to lateral right heel Orthopedic MUSCLE STRENGTH: 5/5 all groups in a symm etrical fashion , B/L General Examination GENERAL APPEARANCE: Reveals a pleasant, alert, well- nourished, well-developed, well hydrated individual, who demonstrates proper attention to hygiene/body habitus, and is in no acute distress, Pt serves as own historian for office visit today ORIENTED: person, place, and t desire Vascular DP PULSES (B): 2/4, B/L PT PULSES (B): 2/4, B/L CAPILLARY FILL TIME: immediate, all digi ts, B/L TEMPERTURE GRADIENT (C): warm to cool, p roximal to distal, B/L TROPHIC CONDITION-TEXTURE/ELASTICITY/TURGOR/HAIR GROWTH (B): normal, B/L EDEMA (C): absent, B/L PIGMENTATION: normal, B/L
== END 2024-09-19 12:46 | disposition home or self-care (01) ==
PROVIDERS: PCP Internal Medicine; Visit Provider Nurse Practitioner
DX: Z91.018 Allergy to other foods (principal); R14.0 Abdominal distension (gaseous)
CPT/HCPCS: 99213

== ENCOUNTER → 2024-09-19 12:18 | Outpatient (BNVA) | payer BC, SELFPAY | PROVIDERS: PCP Internal Medicine; Visit Provider Nurse Practitioner ==

== ENCOUNTER 2025-02-26 15:07 | Outpatient (AMB) | payer BC, SELFPAY ==
--- OUTSIDE RECORDS SUMMARY | 2025-01-30 05:30 | XMS_ITS ---
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 Name Role Phone Charlie Johansen MD Primary Care Provider Michelle Hernández [phone] Encounters Encounter Location Date [facility] [address] [address] 01/30/2025 Michelle Matute Plan Of Treatment Next Appt Details Provider Name:Michelle Joe patel, 03/27/2025 01:00:00 PM, [address] [place] [address], [phone], Progress Notes * Edgar SALAZAR MDOB:[birth year] (24 yo M)Acc No.[id number]:01/30/2025 Progress Note Patient: Be Edgar NUNO Provider: Ana Matute DPM :2000 A ge:24 Y S ex:Male Date:01/30/2025 Address:[address] [place], [place] [id number] Pcp:Charlie Johansen MD Subjective: * Chief Complaints: * * Medical History: Objective: * Vitals: Assessment: Plan: * Treatment: * Images: * The named appointment provid er may or may not be the originator of this progress note, and it is not deemed complete until electronically signed by the appointment provider. Sign off status: Pending * Provider: Ana Matute DPM Date: 0 01/30/2025 Generated for Ras kyle/Roderick/Alexisitting on: 0 02/26/2025 06:18 PM EDT
--- NOTE | 2025-02-26 15:13 | A.OFFPC_ITS ---
Vital Signs 02/26/25 15:14 Height 5 ft 9.69 in Weight 201 lb BMI 29.1 BP 118/76 Respiration 14 Pulse 86 Pulse Source Pulse Oximeter Temp 98.5 F Temp Source Temporal Artery Scan Pulse Oximetry (%) 97 Oxygen Delivery Method Room Air Intake Visit Reasons: Establish Care / Dr. Johansen Application Technician Required: No Accompanied by: Self / Same As Patient Allergies No Known Drug Allergies Allergy (Unknown, Verified 02/26/25 15:18) none Tobacco use date assessed: 02/26/25 Dental Screening Dental Screen Date: 02/26/25 Did you have a dental visit in the last 12 months?: Yes Did you have a dental problem in the last 6 months where you did not have access to dental care?: No Was dental information given to patient?: Patient has dentist [facility] Medical History (Updated 02/26/25 @ 15:36 by Chandu Farah MD) Irritable bowel syndrome Keratosis pilaris Family history of gallbladder disease Abdominal pain Irritable bowel syndrome with diarrhea Surgical History Hx of external ear surgery Family History Paternal Grandfather Heart disease Paternal Grandmother IBS (irritable bowel syndrome) Constipation Mother Rheumatoid arthritis Father Heart disease Social History (Updated 02/26/25 @ 15:20 by SEBASTIÁN Mccormick) Household Members: Family Housing: House Alcohol intake: current Alcohol intake frequency: holidays/special occasions only Patient Tobacco Use Status: Never used Tobacco service: No Current occupational status: employed Cognitive needs: No Hearing needs: No Vision needs: No Questionnaire PHQ-9 Over the last 2 weeks, how often have you been bothered by any of the following problems? 1. Little interest or pleasure in doing things: not at all 2. Feeling down, depressed, or hopeless: not at all 3. Trouble falling or staying asleep, or sleeping too much: not at all 4. Feeling tired or having little energy: not at all 5. Poor appetite or overeating: not at all 6. Feeling bad about yourself - or that you are a failure or have let yourself or your family down: not at all 7. Trouble concentrating on things, such as reading the newspaper or watching television: not at all 8. Moving or speaking so slowly that other people could have noticed. Or the opposite - being so fidgety or restless that you have been moving around a lot more than usual: not at all 9. Thoughts that you would be better off or of hurting yourself in some way: not at all Total score: 0 Source: Developed by Drs. Stanton Jones, Sudha Laguna, Laz Tapia and colleagues, with an educational reinier from [employer]. Thrive Questionnaire Date Thrive assessed: 02/26/25 I am a: Patient What is your living situation today?: I have a steady place to live Within the past 12 months, did the food you bought not last and you didn't have the money to get more?: Never true Within the past 12 months, did you worry whether your food would run out before you got money to buy more?: Never true Do you have trouble paying for medicines?: No Do you have trouble getting transportation to medical appointments?: No Do you have trouble paying your heating and electricity bill?: No Do you have trouble taking care of your child, family member or friend?: No Do you have trouble with day-to-day activities such as bathing, preparing meals, shopping, managing finances, etc.?: No Are you currently unemployed and looking for a job?: No Are you interested in more education?: No Please select the resources that you would like help with: None THRIVE Score: 0 AUDIT C Alcohol Use Questionnaire (AUDIT-C) 1. How often do you have a drink containing alcohol?: Monthly or less 2. How many drinks containing alcohol do you have on a typical day when you are drinking?: 1 or 2 3. How often do you have six or more drinks on one occasion?: Never Total Score: 1 JOSE DE JESUS-7 AMB Questionnaire JOSE DE JESUS-7 Date JOSE DE JESUS - 7 assessed: 02/26/25 Feeling nervous, anxious, or on edge: 0 = Not at all Not being able to stop or control worryin = Not at all Worrying too much about different things: 0 = Not at all Trouble relaxin = Not at all Being so restless that it is hard to sit still: 0 = Not at all Becoming easily annoyed or irritable: 0 = Not at all Feeling afraid as if something awful might happen: 0 = Not at all Total JOSE DE JESUS-7 score (0-4 normal; 5-9 mild; 10-14 moderate; 15-21 severe): 0 Source: Developed by Drs. Stanton Jones, Sudha Laguna, Laz Tapia and colleagues, with an educational reinier from [employer]. Physical exam (Primary Care) Vital Signs: Last Vital Signs Temp 98.5 F 02/26/25 15:14 Pulse 86 02/26/25 15:14 Resp 14 02/26/25 15:14 BP 118/76 02/26/25 15:14 Pulse Ox 97 02/26/25 15:14 Oxygen Delivery Method Room Air 02/26/25 15:14 BMI result Body Mass Index 29.1 Tobacco/Smoking Status: Tobacco use Status Tobacco use date assessed 02/26/25 02/26/25 15:20 Patient Tobacco Use Status Never used Tobacco 02/26/25 15:20 PHQ-9: PHQ-9 Score PHQ-9: Total score 0 02/26/25 15:20 Thrive Assessment: Date of Thrive Assessment Date Thrive assessed 02/26/25 02/26/25 15:20 Coding Level of Care Code New Pt Level 4 (88922) Complex EM visit Add On G2211 Diagnoses Keratosis pilaris L85.8 Irritable bowel syndrome K58.9 Assessment & Plan Assessment & Plan (1) Keratosis pilaris: Code(s): L85.8 - Other specified epidermal thickening Category: Medical Plan: Patient was advised it is benign condition. He wanted to see a print binding worker for cosmetic options. (2) Irritable bowel syndrome: Code(s): K58.9 - Irritable bowel syndrome, unspecified Category: Medical Plan: Patient already has a GI sales representative consultant whom he sees regularly for this condition. Continue to follow up. Plan History of Present Illness - The patient is a 24-year-old male presenting with concerns about a dermatological condition on his arms and a gastrointestinal condition requiring medication. - Dermatological condition: The patient reports having a skin condition on his arms that is not painful but persistent. He has had it for a while and is considering consulting a print binding worker for further evaluation. - Gastrointestinal condition: The patient is currently taking medication for a s tomach-related issue. He is unsure if he needs a new referral to see his petroleum engineer for irritable bowel syndrome. 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 Social History - Employment: Works in [employer] for [employer]. - Substance use: Does not smoke and consumes alcohol occasionally. Review of Systems - Dermatological: Reports persistent skin condition on arms, denies pain. - Gastrointestinal: Reports taking medication for stomach issues, unsure about referral for irritable bowel syndrome. - General: Denies any other health problems. Physical Exam General: Cooperative and healthy appearing Nutritional Appearance: Well nourished Orientation/consciousness: Patient oriented x3 Limitations: No limitations Head: Normal to inspection General: Appearance normal, both eyes and all related structures Neck: Normal visual inspection Chest: Normal palpation of entire chest wall Respiratory: Normal respiratory effort Neurology: Patient oriented x3 Skin; Small reddish bumps mostly around the hair follicles. Extend along the entire upper arm Results Plan 1. Dermatological Condition On Arms - Referral to print binding worker for further evaluation and management. 2. Gastrointestinal Condition - Continue current medication for stomach issues. - Discussed the need for a potential referral to petroleum engineer for irritable bowel syndrome. Discussion Notes During the visit, I discussed with the patient the dermatological condition on his arms and the potential need for a referral to a print binding worker for further evaluation. We also reviewed his gastrointestinal condition and the current medication regimen, addressing the possibility of needing a referral to a petroleum engineer for irritable bowel syndrome. The patient was advised to continue his current medication and to follow up as needed. Patient Instructions - Follow up with a print binding worker for the skin condition on your arms. - Continue taking your current stomach medication as prescribed. - Consider scheduling a visit with your petroleum engineer if symptoms persist or worsen. Orders: Referrals Dermatology Referral L85.8 - Other specified epidermal thickening
[2025-02-26 15:14] VITALS: BP 118/76; PULSE 86; RESP 14; TEMP 36.9; O2SAT 97; BMI 29.1
--- OUTSIDE RECORDS SUMMARY | 2025-02-26 18:18 | XMS_ITS | Patient Health Record ---
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..] W/U Status Risk Notes Problem Plantar wart (52466463) Plantar wart (B07.0) Active confirmed Vital Signs Height 2ko50hi in 05/26/2024 Weight 185 lbs 05/26/2024 BMI 26.54 kg/m2 05/26/2024 Procedures Procedure Date Ordered Date Performed Result Body Sit e 05154-Mgkg Destruction, 1-14 03/29/2024 N/A 59005-Tcskqctr Plate 03/29/2024 N/A 86516-Gsua Destruction, 1-14 04/25/2024 N/A 68729-Fdmj Destruction, 1-14 05/26/2024 N/A 64554-Oxomsrat Plate 05/26/2024 N/A Encounters Encounter Location Date [facility] [address] 03/29/2024 Michelle Matute Right foot pain M79.671 ; Plantar wart B07.0 ; Left foot pain M79.672 and Ingrown nail L60.[address] [address] 04/25/2024 Michelle Matute Right foot pain M79.671 ; Plantar wart B07.0 and Left foot pain M79.[address] [address] 05/26/2024 Michelle Matute Right foot pain M79.671 ; Plantar wart B07.0 and Ingrown nail L60.0 [facility] [address] 01/22/2025 Michelle Matute Assessments Encounter Date Diagnosis (ICD Code) Assessment [...] Treatment Pending Test Test Name Order Date 47735-Zafp Destruction, 07-0412/12/2019 92255-Apad Destruction, 07-0401/03/2020 48131-Srfw Destruction, 07-0403/29/2024 39380-Jwrq Destruction, 07-0404/25/2024 62545-Mtre Destruction, 07-0405/26/2024 86391-Yhxqrvfy Plate 05/26/2024 17023-Txpismhz Plate 03/29/2024 Next Appt Details Provider Name:Michelle Diaz amanda, 03/27/2025 01:00:00 PM, [address] [facility], [address], [place], [address], Insurance Providers Payer Name Payer Address Payer Phone Subscriber Number Group Number Insured Name Patient Relationship to Insured Coverage Start Date Coverage End Date [facility] [address] [place] [address] [phone] [id number] Edgar Salazar Self - patient is the insured Medical (General) History Medical History History ICD Code Chicken pox covid-19 Irritable bowel syndrome Surgical History Surgery Date(Month/Year) adnoid tubes 2003
== END 2025-02-26 15:35 | disposition home or self-care (01) ==
LOC: HO.HMCSH 15:07
PROVIDERS: PCP Internal Medicine; Visit Provider Internal Medicine
DX: L85.8 Other specified epidermal thickening (principal); K58.9 Irritable bowel syndrome, unspecified

== ENCOUNTER 2025-04-27 14:59 | Outpatient (AMB) | payer BC, SELFPAY ==
[2025-04-27 15:05] VITALS: BP 105/66; PULSE 85; BMI 28.9
--- NOTE | 2025-04-27 15:05 | MHC.OFFVIS ---
Vital Signs 04/27/25 15:05 Height 5 ft 11 in Weight 207 lb BMI 28.9 BP 105/66 Blood Pressure Location Rt brachial Position Sitting Pulse 85 Intake Visit Reasons: Follow up 6 months Intake Note: Edgar returns to in office today in 6 months follow up. CC: Pt c/o a lot of gas, constipation, alternating with diarrhea but mostly diarrhea, abdominal discomfort and sometimes pain, and GERD. He states that he continues taking the imipramine but he feels like it only delays his symptoms a little bit. 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 Code(s): Z91.018 - Allergy to other foods Category: Medical (2) Abdominal bloating: Code(s): R14.0 - Abdominal distension (gaseous) Category: Medical Plan In general he continues to do well. He has far less symptoms than he did when we started although occasionally he has bad days. He is also having reflux every couple of days. He is addressing this by taking [id number] Tums which I encouraged since it has calcium that is good for him. At this point I am uncertain why he is having the reflux I think will just watch and wait for now before we make any changes. Return office visit in 6 months or sooner if the symptoms worsen Medications: Refilled imipramine HCl 20 mg (2 x 10 mg) PO BEDTIME 60 tabs 6RF 30 days K58.0 - Irritable bowel syndrome with diarrhea TODAYS VISIT [facility] Medical History Irritable bowel syndrome Keratosis pilaris Family history of gallbladder disease Abdominal pain Irritable bowel syndrome with diarrhea Surgical History Hx of external ear surgery Family History Paternal Grandfather Heart disease Paternal Grandmother IBS (irritable bowel syndrome) Constipation Mother Rheumatoid arthritis Father Heart disease Social History Household Members: Family Housing: House Alcohol intake: current Alcohol intake frequency: holidays/special occasions only Patient Tobacco Use Status: Never used Tobacco service: No Current occupational status: employed Cognitive needs: No Hearing needs: No Vision needs: No Review of Systems Const Denies fatigue, Denies fever(s), Denies night sweats, Denies poor appetite and Denies weight loss Eyes Reports requires corrective lenses ENT Reports Normal hearing present, Denies dental pain, Denies dysphagia, Denies hearing loss, Denies mouth pain, Denies odynophagia, Denies throat swelling, Denies tongue swelling and Reports other (Dentition adequate) GI Details: Denies abdominal pain, Denies melena, Denies bloating, Denies hematochezia, Denies constipation, Denies GI cramping, Denies dysphagia, Denies excessive flatus, Denies early satiety, Denies heartburn, Denies diarrhea, Denies nausea, Denies odynophagia, Denies vomiting and Denies hematemesis Skin/Breast Denies pruritus, Denies lesions, Denies rash and Denies jaundice Neuro Reports Normal hearing present and Denies Abnormal speech present Endo Denies fatigue Aller/Immun Denies throat swelling and Denies tongue swelling Physical Exam Vital Signs: Last Vital Signs Pulse 85 04/27/25 15:05 BP 105/66 04/27/25 15:05 BMI result Body Mass Index 28.9 Const General: cooperative, no acute distress, well developed and well groomed Nutritional Appearance: well nourished, obese and overweight Orientation/consciousness: oriented to person, oriented to place and oriented to time Limitations: No language barrier, ambulation with cane, ambulation with walker and wheelchair HEENT Head: Yes normocephalic and Yes atraumatic Eyes General: appearance normal, both eyes and all related structures Pupils: Equal, round and reactive pupils present Neck Neck: Yes normal visual inspection and Yes no lymphadenopathy Thyroid: Thyroid normal Resp Effort & Inspection: normal respiratory effort and able to speak in complete sentences Auscultation: clear to auscultation bilaterally Cardio Rate: regular rate Rhythm: regular rhythm Heart sounds: Normal, physiologic split S2 sound present Peripheral pulses: radial pulses present and posterior tibial pulses present GI Inspection: No distended and No Abdominal panniculus present Palpation (GI): Soft to palpation, nontender, no guarding, not rigid, No hepatosplenomegaly present and Hepatosplenomegaly present Percussion: Yes normal to percussion Auscultation: normal bowel sounds Rectal Exam - Male: Yes deferred Skin General skin exam: no rashes or lesions noted, turgor normal, skin not dry, no jaundice, No spider nevi and no striae Rashes: no rashes Nails: normal Neuro General: oriented to person, oriented to place and oriented to time Cranial nerves: Yes Equal, round and reactive pupils present and Yes Normal hearing present Speech: No Abnormal speech present Extrem General: Yes normal to inspection, No clubbing, No cyanosis and No edema Psych Thought process: Normal thought process present and not confabulating Thought content: Normal thought content present Insight: Good insight present (Psych) Judgement: Good judgement present (Psych) Assessment & Plan Assessment & Plan (1) Irritable bowel syndrome: Code(s): K58.9 - Irritable bowel syndrome, unspecified Category: Medical Plan - The patient is a 24-year-old male presenting with symptoms of gastroesophageal reflux disease. - Heartburn symptoms were initially reported but clarified as acid reflux, occurring irregularly. - Dietary triggers have not been explicitly identified, although suspected. - Tums is used as an intermittent remedy with good effect. - Current medication (Imipramine) is perceived as partially effective for depression, with symptom severity reduced but not fully resolved. - Experience of symptom exacerbation following periods of relative stability has been noted. - No side effects with current medication dose have been reported. - Monitor and note any foods that seem to worsen acid reflux symptoms. - Use Tums as needed for relief of acid reflux symptoms. - Increase Imipramine dosage to 3 tablets as directed and watch for side effects. - Schedule a follow-up visit in 8 weeks to evaluate response to medication adjustments. - Report any new or worsening symptoms immediately. Medications: New imipramine HCl 30 mg (3 x 10 mg) PO BEDTIME 90 tabs 3RF 30 days K58.9 - Irritable bowel syndrome, unspecified Coding Level of Care Code Est Pt Level 3 (57781) Diagnoses Irritable bowel syndrome K58.9
== END 2025-04-27 15:26 | disposition home or self-care (01) ==
LOC: HO.HGI 15:00
PROVIDERS: PCP Internal Medicine; Visit Provider Nurse Practitioner
DX: K58.9 Irritable bowel syndrome, unspecified (principal)
CPT/HCPCS: 99213